=== PATIENT | male | born 1940 | race Caucasian/White ===

== ENCOUNTER 2017-01-25 21:34 | Inpatient (IN) | payer OTHER, BC ==
--- NOTE | 2017-01-25 21:38 | EDPHY ---
H & P HPI/ROS: CHIEF COMPLAINT: Chest pain Limitations: Dementia, patient unable to provide any clinical history HISTORY OF PRESENT ILLNESS: The patient is a 76 y/o male with a history of dementia and CVA arriving via EMS as a cardiac alert, complaining of right-sided substernal chest pressure that developed 20 minutes ago. The chest pain is constant, without associated symptoms. No shortness of breath or dizziness. No prior similar symptoms. No known history of coronary artery disease. No recent cough or URI symptoms. REVIEW OF SYSTEMS: Aside from elements discussed in the HPI, a comprehensive 10-point review of systems was reviewed and is negative. (Connie Kaminski) Past Medical/Surgical History: CVA with right-sided weakness, IVC filter, DVT (Connie Kaminski) Social History: Lives at [facility], , retired (Connie Kaminski) Physical Exam: General Appearance: Alert, pleasant Eyes: Pupils equal and round, no conjunctival pallor ENT, Mouth: Mucous membranes moist Neck: Normal inspection Respiratory: Lungs are clear to auscultation Cardiovascular: Regular rate and rhythm Gastrointestinal: Abdomen is soft and nontender Neurological: A&O, right sided weakness Skin: Warm and dry Extremities: Right lower extremity edema greater than left. Right-sided hemiparesis Psychiatric: Mood and affect normal (Connie Kaminski) Constitutional: Initial Vital Signs Temperature (C) 36.7 C 01/25/17 21:52 Heart Rate 97 01/25/17 21:52 Respiratory Rate 20 01/25/17 21:52 Blood Pressure 104/74 01/25/17 21:52 O2 Sat (%) 96 01/25/17 21:52 O2 Delivery Mode Nasal Cannula O2 (L/minute) 2 Allergies/Adverse Reactions: levofloxacin [From Levaquin] Allergy (Intermediate, Verified 05/30/14 18:02) Rash Penicillins Allergy (Intermediate, Verified 05/30/14 18:02) Rash ciprofloxacin [From Cipro] Allergy (Verified 01/25/17 21:37) Home Medications: Medication Instructions Recorded Dutasteride [Avodart 0.5 MG (RX)] 0.5 mg PO DAILY 10/07/12 Tamsulosin HCl [Flomax 0.4 MG (RX)] 0.4 mg PO DAILY 10/07/12 Ergocalciferol [Vitamin D2 (*)] 50,000 unit PO Q30D 01/25/17 Sulfamethox/Tmp 800/160 mg 1 tab PO BID 01/25/17 [Bactrim Ds] Herbals/Supplements -Info Only 1 ea PO DAILY 01/26/17 Levothyroxine [Synthroid 100 mcg 100 mcg PO DAILY 01/26/17 (*)] Multivitamins [Multivitamin (*)] 1 each PO DAILY 01/26/17 Sennosides/Docusate Sodium 1 each PO DAILY 01/26/17 [Senna-S Tablet] Triamterene/Hydrochlorothiazid 1 each PO DAILY 01/26/17 [Triamterene-Hctz 37.5-25 mg Tb] Warfarin Sodium [Coumadin 5MG (*)] 5 mg PO DAILY16 01/26/17 lamoTRIgine [LamICTAL 100 MG (*)] 200 mg PO BID 01/26/17 Medical Decision Making - Diagnostics Imaging: Discussed imaging studies w/ sharepoint analyst Radiologist, I viewed and interpreted images myself - Diagnostics EKG Interpretation: EKG interpreted by me reveals normal sinus rhythm, rate 99, right bundle branch block ST segment elevation in lead 3, 1 mm (Connie Kaminski) ED Course/Re-evaluation: 12:30 a.m.- The patient was seen by the hospitalist who noticed a rash on his right abdomen which was suspicious for shingles. The right upper quadrant ultrasound was performed which raise concern for cholecystitis given thickened gallbladder wall and gallstones. The cause of the patient's pain is not entirely clear at this point. He will be admitted to a medical-surgical bed because cardiac cause has been ruled out at this time. I have consulted with Dr. GREGORIO Abbott of General surgery and he will see the patient in consultation with the hospitalist who plans to admit the patient. (Catia Cotto) 2139: Cancelled cardiac alert after initial EKG. Does not meet criteria for STEMI. There are no old EKGs for comparison, but I think that the EKG changes are secondary to the right bundle is block. In addition, the patient's chest pain has almost completely resolved. 2199: Reassessed patient, his switchboard operator is now at the bedside. He is now having RUQ tenderness. Has right lower extremity pedal edema that is greater than the left and right-sided hemiparesis. The patient is a very poor historian and keeps changing his answers as to if he is having pain or not. He is also unsure if he is having chest pain or abdominal pain. Plan on RLE US to rule out DVT. 2214: Per radiologist, patient's chest x-ray reveals hypoventilatory chest with streaky right basilar opacities that could be related to atelectasis and/or pneumonia. 2245: Spoke with Dr. Lynn, radiologist, RLE US is negative for DVT. In addition D-dimer is negative and I do not suspect acute pulmonary embolism etiology for the chest pain. 2300: Leukocytosis present, alk-phos elevated. Right upper quadrant ultrasound ordered to rule out cholecystitis. Abdominal exam is benign and nontender at this time. He denies pain. The hospitalist service was consulted for admission, Dr. Yoder accepts admission of this patient. [facility] pending RUQ US. (Connie Kaminski) Differential Diagnosis: Differential diagnosis includes though it is not limited to pneumonia, pneumothorax, pulmonary embolism, aortic dissection, pericarditis, acute coronary syndrome, cholecystitis, peptic ulcer disease. (Connie Kaminski) - Data Points Laboratory Results: Laboratory Results 01/26/17 04:12 01/26/17 04:12 Medications Given: Dutasteride (Avodart) 0.5 mg PO DAILY [facility] Stop: 07/26/17 08:59 Last Admin: 01/28/17 10:35 Dose: 0.5 mg Enoxaparin Sodium (Lovenox) 80 mg SC BID [facility] Stop: 07/27/17 13:29 Last Admin: 01/28/17 16:02 Dose: 80 mg Ertapenem (Invanz) 1 gm IVP DAILY [facility] PRN Reason: Protocol Stop: 02/25/17 21:44 Last Admin: 01/28/17 10:36 Dose: 1 gm Lamotrigine (Lamictal) 200 mg PO BID [facility] Stop: 07/25/17 20:59 Last Admin: 01/28/17 10:34 Dose: 200 mg Levothyroxine Sodium (Synthroid) 100 mcg PO DAILY [facility] Stop: 07/26/17 08:59 Last Admin: 01/28/17 10:35 Dose: 100 mcg Multivitamins (Tab-A-Leif) 1 each PO DAILY [facility] Stop: 07/26/17 08:59 Last Admin: 01/28/17 10:36 Dose: 1 each Senna/Docusate Sodium (Senokot-S) 1 tab PO DAILY [facility] Stop: 07/26/17 08:59 Last Admin: 01/28/17 10:35 Dose: 1 tab Tamsulosin HCl (Flomax) 0.4 mg PO DAILY [facility] Stop: 07/26/17 08:59 Last Admin: 01/28/17 10:34 Dose: 0.4 mg Triamterene/HCTZ (Maxzide-25) 1 each PO DAILY [facility] Stop: 07/26/17 08:59 Last Admin: 01/28/17 10:34 Dose: 1 each Warfarin Sodium (Coumadin) 5 mg PO DAILY16 [facility] Stop: 07/27/17 15:59 Last Admin: 01/28/17 16:02 Dose: 5 mg Discontinued Medications Acyclovir (Zovirax Oral Liquid) 800 mg PO 5XD [facility] Stop: 02/25/17 00:59 Last Admin: 01/28/17 13:46 Dose: Not Given Bupivacaine HCl (Sensorcaine 0.5% Vial) Confirm Administered Dose 30 ml .ROUTE .STK-MED ONE Stop: 01/26/17 16:57 Last Admin: 01/26/17 21:00 Dose: 30 ml Cefazolin Sodium (Ancef) Confirm Administered Dose 1 gm .ROUTE .STK-MED ONE Stop: 01/26/17 18:46 Last Admin: 01/26/17 20:06 Dose: 1 gm Cefazolin Sodium (Ancef) Confirm Administered Dose 1 gm .ROUTE .STK-MED ONE Stop: 01/26/17 18:46 Last Admin: 01/26/17 20:06 Dose: 1 gm Heparin Sodium (Porcine) (Heparin Sodium) Confirm Administered Dose 1,000 unit .ROUTE .STK-MED ONE Stop: 01/26/17 20:18 Last Admin: 01/26/17 20:20 Dose: 1,000 unit Lactated Ringer's (Lr) 1,000 mls @ 75 mls/hr IV CONT [facility] Stop: 01/27/17 14:15 Last Admin: 01/26/17 01:42 Dose: 1,000 mls Phytonadione 10 mg/ Sodium (Chloride) 51 mls @ 102 mls/hr IV ONCE ONE Stop: 01/26/17 08:15 Last Admin: 01/26/17 08:19 Dose: 51 mls Potassium Chloride/Dextrose/Sod Cl (D5w 1/2 Ns W/ 20 Kcl/L) 1,000 mls @ 100 mls /hr IV CONT [facility] Stop: 07/25/17 21:44 Last Admin: 01/28/17 01:02 Dose: 1,000 mls Iopamidol (Isovue-300) Confirm Administered Dose 150 ml .ROUTE .STK-MED ONE Stop: 01/26/17 17:15 Last Admin: 01/26/17 20:48 Dose: Not Given Iopamidol (Isovue-M 200) Confirm Administered Dose 20 ml .ROUTE .STK-MED ONE Stop: 01/26/17 17:16 Last Admin: 01/26/17 20:48 Dose: Not Given Departure - Departure Disposition: [facility] Inpatient Acute Clinical Impression: Cholecystitis Chest pain Qualifiers: Chest pain type: precordial pain Qualified Code(s): R07.2 - Precordial pain Condition: Fair Report Scribed for: Connie Kaminski Report Scribed by: Edwige Rock Date of Report: 01/25/17 Time of Report: 22:18 Physician Review and Approval Statement: 01/25/17 22:19 Portions of this note were transcribed by a certified medical assistant. I personally performed a history, physical exam, medical decision making, and confirmed accuracy of information the transcribed note. (Connie Kaminski)
--- NOTE | 2017-01-25 21:46 | CPEKG ---
Heart Rate: 99 RR Interval: 606 P-R Interval: 188 QRSD Interval: 154 QT Interval: 396 QTC Interval: 509 P Norvell: 46 QRS Norvell: -84 T Wave Norvell: 76 EKG Severity - ABNORMAL ECG - EKG Impression: SINUS RHYTHM EKG Impression: RIGHT BUNDLE BRANCH BLOCK EKG Impression: PROBABLE ANTEROSEPTAL INFARCT, AGE INDETERM Electronically Signed By: Connie Kaminski 25-Jan-2017 23:22:14
[2017-01-25 21:54] LABS: ADD DIFF? YES; ADD MORPH? NO; ADD SCAN? NO; ATYPICAL LYMPHOCYTE FLAG 0 (0-99); FRAGMENT RBC FLAG 0 (0-99); HEMATOCRIT 42.6 % (40.0-51.0); HEMOGLOBIN 14.6 g/dL (13.7-17.5); LEFT SHIFT FLG 90 (0-99); LIPEMIA HEMOLYSIS FLAG 90 (0-99); MEAN CELL HEMOGLOBIN 29.9 pg (27.9-34.1); MEAN CELL HEMOGLOBIN CONCENTR. 34.3 g/dL (32.4-36.7); MEAN CELL VOLUME 87.1 fL (81.5-99.8); MEAN PLATELET VOLUME 8.8 fL (8.7-11.7); PLATELET CLUMPS FLAG 0 (0-99); PLATELET COUNT 323 10^3/uL (150-400); RED BLOOD CELL COUNT 4.89 10^6/uL (4.40-6.38); RED CELL DISTRIBUTION WIDTH 13.1 % (11.5-15.2)
[2017-01-25 22:10] LABS: ANION GAP 14 mEq/L (8-16); CALCIUM 9.4 mg/dL (8.5-10.4); CARBON DIOXIDE 23 mEq/l (22-31); CHLORIDE 96 mEq/L (97-110); CREATININE 1.1 mg/dL (0.7-1.3); GLOMERULAR FILTRATION RATE > 60; GLUCOSE 131 mg/dL (70-100); POTASSIUM 3.7 mEq/L (3.5-5.2); SODIUM 133 mEq/L (134-144)
[2017-01-25 22:22] LABS: TROPONIN I < 0.012 ng/mL (0.000-0.034)
[2017-01-25 22:31] LABS: PLATELET ESTIMATE ADEQUATE (ADEQ)
[2017-01-25 22:34] LABS: POLYCHROMASIA 1+
[2017-01-25 22:35] LABS: ALBUMIN 3.5 g/dL (3.5-5.0); TOTAL PROTEIN 6.5 g/dL (6.3-8.2)
[2017-01-25 22:48] LABS: ALANINE AMINOTRANSFERASE 50 IU/L (21-72); ALKALINE PHOSPHATASE 186 IU/L (38-126); ASPARTATE AMINOTRANSFERASE 41 IU/L (17-59); BILIRUBIN,TOTAL 0.3 mg/dL (0.1-1.4); BILIRUBIN-CONJUGATED 0.3 mg/dL (0.0-0.5)
[2017-01-25] MEDS ORDERED: ACYCLOVIR 400 MG TAB PO ONE (23:57)
[2017-01-26] MEDS ORDERED: ONDANSETRON 4 MG/2 ML VIAL IVP PRN (00:27)
[2017-01-26] MEDS ORDERED: ACETAMINOPHEN 325 MG TAB PO PRN (00:27)
[2017-01-26] MEDS ORDERED: HYDROmorphONE/DILAUDID 1 MG/ML INJ IVP PRN ×2 (00:27→19:23)
--- NOTE | 2017-01-26 00:43 | PDGENHP ---
History and Physical - Chief Complaint Right lower chest/RUQ pain - History of Present Illness Source - patient is able to supplement some of the history but limited with history of aphasia related to CVA and dementia. Patient stepdaughter and friend /sail maker at bedside and supplement history. [place] and communicating via text with daughter. Case discussed with ED provider and EMR reviewed. HPI - Pleasant 76 yo M with pmx significant for CVA right hemiparesis, aphasia, dementia, hx DVT s/p IVC filter on coumadin, BPH, HTN who presents to the ED tonight from [facility] [place] with complaints of Right lower chest/RUQ abdominal pain. Patient reports pain has been on going for almost 1 week. He denies any fevers/chills/nausea/vomiting/diarrhea. Pain is intermittent and cramping. Patient underwent an o/p Xray at his facility that was negative for evidence of pneumonia. Laboratory studies were significant for leukocytosis over the weekend. Patient was started on macrobid for UTI. Patient's stepdaughter reports patient has had mild cough and congestion as reported to her by patient's since yesterday. Patient has also been c/o some itching and pain at similar site of pain but patient reports there is also a deeper pain on going in addition. It was noted on my exam patient appeared to have a rash that was not known. Patient with history of shingles with last exacerbation 2011 also on the right side. patient did receive zostavax, flu and pneumonia presumably per family as he resides in [facility]. History Information - Allergies/Home Medication List Allergies/Adverse Reactions: levofloxacin [From Levaquin] Allergy (Intermediate, Verified 05/30/14 18:02) Rash Penicillins Allergy (Intermediate, Verified 05/30/14 18:02) Rash ciprofloxacin [From Cipro] Allergy (Verified 01/25/17 21:37) Home Medications: Dutasteride [Avodart 0.5 MG (RX)] 0.5 mg PO DAILY 10/07/12 [Last Taken Unknown] LEVOTHYROXINE SODIUM [Levoxyl 137 mcg] 137 mcg PO 10/07/12 [Last Taken Unknown] Tamsulosin HCl [Flomax 0.4 MG (RX)] 0.4 mg PO DAILY8 10/07/12 [Last Taken Unknown] Triamterene/Hydrochlorothiazid [Triamterene-Hctz 37.5-25 mg Cp] 1 each PO [Last Taken Unknown] WARFARIN SODIUM [Coumadin] 10 mg PO 10/07/12 [Last Taken Unknown] lamoTRIgine [LamICTAL ODT] 400 mg PO 10/07/12 [Last Taken Unknown] Bactrim DS 01/25/17 [Last Taken Unknown] Doxycycline Hyclate 01/25/17 [Last Taken Unknown] Vitamin D3 01/25/17 [Last Taken Unknown] I have personally reviewed and updated: family history, medical history, social history, surgical history - Past Medical History Additional medical history: dementia. 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 pt is wheelchair dependent. hypothyroidism. hx DVT on coumadin s/p IVC filter placement. BPH. benign essential HTN - Surgical History Additional surgical history: IVC filter. neurosurgical intervention for AVM. TURP. g tube insertion/removal. - Family History Additional family history: parents . patient child presumed healthy but step-daughter at bedside unsure. - Social History Smoking Status: Former smoker Tobacco Use: Cigarettes, Cigar Alcohol Use: None (previous history of moderate use prior to CVA.) Drug Use: None Additional social history: Patient is . Resides at [facility]. wheelchair dependent. COR - DNR/DNI. TAMICA. Review of Systems Review of Systems: ROS: 10pt was reviewed & negative except for what was stated in HPI & below Constitutional: Reports: no symptoms. Denies: chills, fever, malaise EENMT: Reports: no symptoms. Denies: blurred vision, nose congestion, sore throat Cardiac: Reports: chest pain (pt reports R lower chest/upper abdominal pain), edema (chronic LE edema, slightly increased in last few days. ). Denies: palpitations, syncope Respiratory: Reports: cough (nonproductive x 1 day) Gastrointestinal: Reports: abdominal pain (RUQ x 1 week). Denies: vomitting, black stools, rectal bleeding, constipation, diarrhea, nausea Genitourinary: Reports: hematuria. Denies: discharge, frequency, pain Muscolosketal: Denies: back pain, calf pain, muscle pain Skin: Reports: rash (right lateral/anterior chest, left axilla.) Neurological: Reports: pre-existing deficit (baseline left hemiparesis). Denies : anxiety, depressed, headache, seizure Hematologic/Lymphatic: Reports: blood clots. Denies: anemia Physical Exam Physical Exam: Selected Entries 01/25/17 21:52 Blood Pressure Automatic Method Heart Rate 97 Respiratory 20 Rate O2 Sat (%) 96 Temperature (C) 36.7 C Blood Pressure 104/74 Mean Arterial 84 Pressure (MAP) O2 Delivery Room Air Mode Temperature Oral Source Temp Pulse Resp BP Pulse Ox 36.7 C 97 20 104/74 96 01/25/17 21:52 01/25/17 21:52 01/25/17 21:52 01/25/17 21:52 01/25/17 21:58 Constitutional: no apparent distress, appears nourished, chronically ill appearing, obese, other (RUE contracted in sling. ) Eyes: PERRL (slightly decreased reactivity to light bilaterally but symmetric. ) , anicteric sclera, EOMI, No scleral injection Ears, Nose, Mouth, Throat: moist mucous membranes, No poor dentition Cardiovascular: regular rate and rhythym, no murmur, rub, or gallop, edema (2+ bilateral lower legs/feet. pitting.) Peripheral Pulses: 1+: dorsalis-pedis (R) (limited 2/2 edema), dorsalis-pedis (L ) (limited 2/2 edema) Respiratory: no respiratory distress, no rales or rhonchi, clear to auscultation , reduced air movement (bibasilar. no crackles) Gastrointestinal: normoactive bowel sounds, no palpable masses, tenderness ( RUQ. neg Bear's sign), other (obese abdomen. soft. ), No ascites, No bear's sign, No guarding, No distension Genitourinary: no bladder tenderness, No pineda in urethra Skin: warm, normal color, no fluctuance, rash (right latera/anterior chest thoracic distribution happens to be below patient right arm sling, but not present previously per family/sail maker. left axilla. ), No pressure ulcer Musculoskeletal: generalized weakness, other (right hemiparesis. strength on left generally weak. patient requires assistance with movement/sitting up. ) Neurologic: AAOx3, sensation intact bilaterally, other (right hemiparesis. cranial nerves grossly intact. ), No weakness, No numbness, No facial droop Psychiatric: not anxious, not encephalopathic, other (aphasia. dementia.), No anxious, No depressed Lab Data & Imaging Review 01/25/17 21:30 01/25/17 21:30 WBC 14.20 10^3/uL (3.80-9.50) H 01/25/17 21:30 RBC 4.89 10^6/uL (4.40-6.38) 01/25/17 21:30 Hgb 14.6 g/dL (13.7-17.5) 01/25/17 21:30 Hct 42.6 % (40.0-51.0) 01/25/17 21:30 MCV 87.1 fL (81.5-99.8) 01/25/17 21:30 MCH 29.9 pg (27.9-34.1) 01/25/17 21:30 MCHC 34.3 g/dL (32.4-36.7) 01/25/17 21:30 RDW 13.1 % (11.5-15.2) 01/25/17 21:30 Plt Count 323 10^3/uL (150-400) 01/25/17 21:30 MPV 8.8 fL (8.7-11.7) 01/25/17 21:30 Neut % (Auto) Not Reported 01/25/17 21:30 Lymph % (Auto) Not Reported 01/25/17 21:30 Roseau % (Auto) Not Reported 01/25/17 21:30 Eos % (Auto) Not Reported 01/25/17 21:30 Baso % (Auto) Not Reported 01/25/17 21:30 Nucleat RBC Rel Count 0.0 % (0.0-0.2) 01/25/17 21:30 Absolute Neuts (auto) Not Reported 01/25/17 21:30 Absolute Lymphs (auto) Not Reported 01/25/17 21:30 Absolute Monos (auto) Not Reported 01/25/17 21:30 Absolute Eos (auto) Not Reported 01/25/17 21:30 Absolute Basos (auto) Not Reported 01/25/17 21:30 Absolute Nucleated RBC 0.00 10^3/uL (0-0.01) 01/25/17 21:30 Immature Gran % Not Reported 01/25/17 21:30 Seg Neutrophils % 69 % 01/25/17 21:30 Band Neutrophils % 1 % 01/25/17 21:30 Lymphocytes % 11 % 01/25/17 21:30 Monocytes % 11 % 01/25/17 21:30 Eosinophils % 1 % 01/25/17 21:30 Metamyelocytes % 2 % 01/25/17 21:30 Myelocytes % 5 % 01/25/17 21:30 Immature Gran # Not Reported 01/25/17 21:30 Absolute Seg Neuts 9.80 10^/uL (1.70-6.50) H 01/25/17 21:30 Absolute Band Neuts 0.14 10^3/uL (0.00-0.70) 01/25/17 21:30 Absolute Lymphocytes 1.56 10^3/uL (1.00-3.00) 01/25/17 21:30 Absolute Monocytes 1.56 10^3/uL (0.30-0.80) H 01/25/17 21:30 Absolute Eosinophils 0.14 10^3/uL (0.03-0.40) 01/25/17 21:30 Absolute Metamyelocyte 0.28 10^3/mL (0.00-0.00) H 01/25/17 21:30 Absolute Myelocytes 0.71 10^3/mL (0.00-0.00) H 01/25/17 21:30 Platelet Estimate ADEQUATE (ADEQ) 01/25/17 21:30 Polychromasia 1+ H 01/25/17 21:30 D-Dimer 0.48 ug/mLFEU (0.00-0.50) 01/25/17 21:30 Sodium 133 mEq/L (134-144) L 01/25/17 21:30 Potassium 3.7 mEq/L (3.5-5.2) 01/25/17 21:30 Chloride 96 mEq/L (97-110) L 01/25/17 21:30 Carbon Dioxide 23 mEq/l (22-31) 01/25/17 21:30 Anion Gap 14 mEq/L (8-16) 01/25/17 21:30 BUN 15 mg/dL (7-23) 01/25/17 21:30 Creatinine 1.1 mg/dL (0.7-1.3) 01/25/17 21:30 Estimated GFR > 60 01/25/17 21:30 Glucose 131 mg/dL (70-100) H 01/25/17 21:30 Calcium 9.4 mg/dL (8.5-10.4) 01/25/17 21:30 Total Bilirubin 0.3 mg/dL (0.1-1.4) 01/25/17 21:30 Conjugated Bilirubin 0.3 mg/dL (0.0-0.5) 01/25/17 21:30 Unconjugated Bilirubin 0.0 mg/dL (0.0-1.1) 01/25/17 21:30 AST 41 IU/L (17-59) 01/25/17 21:30 ALT 50 IU/L (21-72) 01/25/17 21:30 Alkaline Phosphatase 186 IU/L (38-126) H 01/25/17 21:30 Troponin I < 0.012 ng/mL (0.000-0.034) 01/25/17 21:30 NT-Pro-B Natriuret Pep 103 pg/mL (0-125) 01/25/17 21:30 Total Protein 6.5 g/dL (6.3-8.2) 01/25/17 21:30 Albumin 3.5 g/dL (3.5-5.0) 01/25/17 21:30 Lipase 126 IU/L (23-300) 01/25/17 21:30 Imaging Review: Limited Right Upper Quadrant Ultrasound History: RUQ Pain, possible Cholelithiasis. Comparison: None available. Findings: The study is severely limited by body habitus. The liver is incompletely visualized, with no gross hepatic mass. There is no appreciable intrahepatic biliary dilatation. The common bile duct is not definitely visualized, with an equivocal duct measuring 4 mm. The gallbladder wall is mildly thickened, with multiple stones in the gallbladder. The right kidney is suboptimally visualized, measuring approximately 10.8 cm without crow hydronephrosis. Impression: Severely limited study as above, with cholelithiasis and gallbladder wall thickening suspicious for cholecystitis Findings discussed with Catia Cotto 01/26/2017 at 0:04. Portable Chest at 2200 hours History: Chest Pain. Comparison: None available. Findings: Lung volumes are markedly low with streaky right basilar consolidation. There is no pneumothorax or visible pleural effusion. Granulomas are noted. Heart size is within normal limits for technique. Degenerative change is present in the right glenohumeral joint. Impression: Hypoventilatory chest with streaky right basilar opacities that could be related to atelectasis and/or pneumonia. Right Lower Extremity Ultrasound and Venous Duplex Doppler Study History: Swelling. Comparison: None available. Technique: High frequency transducer was used for imaging and Doppler study of the veins of the lower extremity. Pulsed Doppler and color Doppler were utilized, along with various maneuvers to assess flow in the veins. Findings: The deep veins of the lower extremity are normally compressible between the groin and the upper calf and have normal Doppler waveforms within them. No venous thrombosis is identified. Edema is noted. Impression: No evidence of deep vein thrombosis. Findings discussed with BRAD FARLEY 01/25/2017 at 22:43. Visualized and Interpreted Chest x-ray results: Yes Chest X-Ray results: other (poor inspiration/atelectasis right lower lung field. lower suspicion for pneumonia at this time with c/o RUQ abodminal pain and abnl US.) EKG Interpretation: Positive for: normal sinsus rhythm, right bundle branch block EKG additional interpertation: NSR RBBB 90s. Assessment & Plan Assessment: #RUQ abdominal pain - Patient with complaint of sx ongoing x 1 week. alk phos slightly elevated no other lft elevations. patient was seen in ED prior to US results which did return concerning for cholecystitis. Surgery consulted from ED will await their recommendations. Patient will be made npo. It was noted also patient with evidence of shingles below right arm which is in a sling. family/sail maker noted patient without previous issues of rash in this area but last had episode of shingles similarly on right side approx 2011. There was concern for chest pain and patient initially a cardiac alert as RBBB changes noted by EMS. this was since discontinued. patient points to RUQ rather than chest. trop neg. RBBB on ekg but no comparison ekgs available. ddimer neg. without hypoxia or tachypnea and has IVC filter in place also on coumadin. awaiting add on PT/INR. #shingles right lower chest, rash also noted left axilla - patient will be started on acyclovir. no vesicles appreciated. leukocytosis - possibly 2/2 iliana vs. shingles vs atelectasis noted on cxr vs less likely pneumonia. await surgery recommendations and consideration for abx, continue acyclovir. incentive spirometry as tolerated. patient undergoing antibiotic tx for possible UTI 2/2 dx of hematuria on nitrofurantoin. will repeat UA at this time. Patient reported to be on antibiotics for last several days but no accompanying med rec from [facility] arrived with patient. #hyponatremia - likely related to hypovolemia. IVF supplementation while npo. #hypochloridemia - in setting of above. #hyperglycemia - nonfasting lab. repeat bmp in AM. #LE edema - chronic slightly increased from baseline per family. #hx DVT s/p IVC filter on coumadin tx - check pt/inr. RLE US neg for DVT. #hx CVA with L hemiparesis - supportive care. patient wheelchair bound at baseline. #dementia - supportive care. #hypothyroidism - continue l-thyroxine when diet advanced. #benign essential HTN - BPs acceptable at this time. #BPH - resume avodart when diet advanced. #hematuria - repeat UA. patient denies any sx. antibiotics started empirically per step-daughter. hold at this time. FEN - LR NS. NPO pending surgery evaluation. PPX - right venous duplex neg for DVT. SCDs if tolerated. otherwise s/p IVC filter and on coumadin. COR - DNR/DNI per step/daughter communicating with patient who is en route [place] hospital from airport. Dispo - Admit to observation on med/surge at this time pending surgery recommendations.
[2017-01-26] MEDS ORDERED: LR 1,000 ML IV SCH (01:00)
[2017-01-26 01:08] LABS: INR 2.54 (0.83-1.16); PROTIME(PATIENT) 27.3 SEC (12.0-15.0)
[2017-01-26 01:09] LABS: APTT 39.8 SEC (23.0-38.0)
[2017-01-26] MEDS: ACYCLOVIR 200 MG/5 ML 60 ML BTL PO SCH ×6 (01:58→22:37)
[2017-01-26 04:51] LABS: ADD DIFF? YES; ADD MORPH? NO; ATYPICAL LYMPHOCYTE FLAG 10 (0-99); FRAGMENT RBC FLAG 0 (0-99); HEMATOCRIT 38.1 % (40.0-51.0); HEMOGLOBIN 13.1 g/dL (13.7-17.5); LIPEMIA HEMOLYSIS FLAG 90 (0-99); MEAN CELL HEMOGLOBIN 29.9 pg (27.9-34.1); MEAN CELL HEMOGLOBIN CONCENTR. 34.4 g/dL (32.4-36.7); MEAN PLATELET VOLUME 8.5 fL (8.7-11.7); PLATELET CLUMPS FLAG 0 (0-99); PLATELET COUNT 309 10^3/uL (150-400); RED BLOOD CELL COUNT 4.38 10^6/uL (4.40-6.38); RED CELL DISTRIBUTION WIDTH 13.1 % (11.5-15.2)
[2017-01-26 04:55] LABS: ADD SCAN? NO; LEFT SHIFT FLG 110 (0-99)
[2017-01-26 04:58] LABS: COLOR YELLOW; LEUKOCYTE ESTERASE,URINE NEGATIVE (NEGATIVE); NITRITE,URINE NEGATIVE (NEGATIVE)
[2017-01-26 05:08] LABS: ALANINE AMINOTRANSFERASE 46 IU/L (21-72); ALBUMIN 2.5 g/dL (3.5-5.0); ALKALINE PHOSPHATASE 141 IU/L (38-126); ANION GAP 12 mEq/L (8-16); ASPARTATE AMINOTRANSFERASE 25 IU/L (17-59); BILIRUBIN,TOTAL 0.1 mg/dL (0.1-1.4); CALCIUM 8.6 mg/dL (8.5-10.4); CARBON DIOXIDE 23 mEq/l (22-31); CHLORIDE 100 mEq/L (97-110); GLOMERULAR FILTRATION RATE > 60; GLUCOSE 89 mg/dL (70-100); POTASSIUM 4.1 mEq/L (3.5-5.2); SODIUM 135 mEq/L (134-144); TOTAL PROTEIN 4.7 g/dL (6.3-8.2)
[2017-01-26 05:20] LABS: PLATELET ESTIMATE ADEQUATE (ADEQ); POLYCHROMASIA 1+
--- NOTE | 2017-01-26 05:44 | SOAPPROG ---
[facility] Progress Note Assessment/Plan: Assessment: 76 MALE WITH RUQ PAIN AND US SUSPICIOUS FOR CHOLECYSTITIS LFTS OK Plan:WILL SEE THIS AM/ LIKELY NEEDS LAP IVETTE 01/26/17 05:43 Objective: Vital Signs Temp Pulse Resp BP Pulse Ox 36.6 C 81 20 103/64 95 01/26/17 04:00 01/26/17 04:00 01/26/17 04:00 01/26/17 04:00 01/26/17 04:00 Laboratory Results 01/26/17 04:12 01/26/17 04:12 01/24/17 01/25/17 01/26/17 05:59 05:59 05:59 Intake Total 0 Output Total 500 Balance -500 PT 27.3 SEC (12.0-15.0) H 01/25/17 21:30 INR 2.54 (0.83-1.16) H 01/25/17 21:30 ICD10 Worksheet Patient Problems: Problems Problem Status Onset Chest pain Acute
[2017-01-26 06:25] LABS: APTT 42.3 SEC (23.0-38.0); INR 2.81 (0.83-1.16); PROTIME(PATIENT) 29.5 SEC (12.0-15.0)
[2017-01-26] MEDS ORDERED: PHYTONADIONE 10 MG in NS 50 ML IV ONE (07:46)
--- NOTE | 2017-01-26 10:31 | HOSPPROG ---
Hospitalist Progress Note Assessment/Plan: 76 yo M w h/o remote R MCA CVA nad VTE admitted w abd pain,m cholecystitis cholecystitis: surgery today start ertapenem pcn allergy noted coagulopathy: FFP and vit K ? zoster: this rash may well be skin irritation from where his L hand rests but [employer] zoster- treat for now if zoster, will declare itself next 24 hours ? pneumonia: cxr interp by me- likely splinting from RUQ process proph: resume anticoag post op dispo: inpt Subjective: case d/w dr esquivel. ruq tenderness Objective: Vital Signs Temp Pulse Resp BP Pulse Ox 36.7 C 74 16 111/57 L 93 01/26/17 08:00 01/26/17 08:00 01/26/17 08:00 01/26/17 08:00 01/26/17 08:00 Laboratory Results 01/26/17 04:12 01/26/17 04:12 01/25/17 01/26/17 01/27/17 05:59 05:59 05:59 Intake Total 0 Output Total 500 Balance -500 PT 29.5 SEC (12.0-15.0) H 01/26/17 05:01 INR 2.81 (0.83-1.16) H 01/26/17 05:01 - Physical Exam Constitutional: no apparent distress, appears nourished Eyes: PERRL, anicteric sclera Ears, Nose, Mouth, Throat: moist mucous membranes, hearing normal Cardiovascular: regular rate and rhythym, no murmur, rub, or gallop, No tachycardia Respiratory: no respiratory distress, no rales or rhonchi Gastrointestinal: normoactive bowel sounds, claudio's sign, No guarding, No rebound Genitourinary: no bladder fullness, No pineda in urethra Skin: warm, other (erythematous macular rash under L breast) Musculoskeletal: full muscle strength, no muscle tenderness Neurologic: AAOx3, other (aphasic w l SIDED WEAKNESS) Psychiatric: interacting appropriately Lymph, Heme, Immunologic: no cervical LAD ICD10 Worksheet Patient Problems: Problems Problem Status Onset Chest pain Acute
--- NOTE | 2017-01-26 16:16 | ASMTCASEMG ---
Living Arrangements What is your living Answers: Alone arrangement? Who do you live with? Type Of Residence What kind of residence do Answers: Assisted Living you live in? Type of Residence Facility Name Notes: [facility] Discharge Plan Comments Coordination Status Comments Notes: Pt is a 76 y/o man admitted for chest pain, shingles and cholecystitis likely. Pt will most likely have surgical intervention today w/ Dr. Abbott. Therapies have been ordered. Needs are TBD at this time. CM to follow. Plan: TBD Date Signed: 01/26/2017 04:15 PM Electronically Signed By:SHREE Gomez
[2017-01-26] MEDS ORDERED: BUPIVACAINE 0.5% 30 ML SDV ONE (16:56)
[2017-01-26] MEDS ORDERED: IOPAMIDOL (ISOVUE-300) 150 ML BTL ONE (17:14)
[2017-01-26] MEDS ORDERED: IOPAMIDOL (ISOVUE-M 200) 20 ML VIAL ONE (17:15)
--- NOTE | 2017-01-26 17:30 | PDANEPAE ---
ANE History of Present Illness 76 year old male w/ complex PMHx presents for lap iliana. 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 Patient admitted with suspected shingles, patient is on both contact and droplet precaution (N95 mask to be worn ). Long discussion with patient's (POA) at bedside. states patient listed as DNR/DNI, but not what she intended. No terminal operations manager heroic measures or shelter life supportive measures, but intubation for surgery, chest compressions or even defibrillation is acceptable to treat immediate problems. ANE Past Medical History - Cardiovascular History Hx Hypertension: Yes Hx Arrhythmias: No Hx Chest Pain: No Hx Coronary Artery / Peripheral Vascular Disease: No Hx CHF / Valvular Disease: No Hx Palpitations: No - Pulmonary History Hx COPD: No Hx Asthma/Reactive Airway Disease: No Hx Recent Upper Respiratory Infection: No Hx Oxygen in Use at Home: No Hx Sleep Apnea: No Sleep Apnea Screening Result - Last Documented: Negative - Endocrine History Hx Diabetes: No Hypothyroid: Yes Hyperthyroid: No Obesity: no - Neurological & Psychiatric Hx Hx Neurological and Psychiatric Disorders: Yes Neurological / Psychiatric History Comment: CVA in 2004 - Cancer History Hx Cancer: No - GI History Gastrointestinal History Comment: History of PEG. ANE Review of Systems Review of systems is: negative Review of Systems: - Exercise capacity Exercise capacity: <4 METS ANE Patient History - Allergies Allergies/Adverse Reactions: levofloxacin [From Levaquin] Allergy (Intermediate, Verified 05/30/14 18:02) Rash Penicillins Allergy (Intermediate, Verified 05/30/14 18:02) Rash ciprofloxacin [From Cipro] Allergy (Verified 01/25/17 21:37) - Home Medications Home medications: home medication list seen and reviewed Home Medications: Dutasteride [Avodart 0.5 MG (RX)] 0.5 mg PO DAILY 10/07/12 [Last Taken 01/25/17] Tamsulosin HCl [Flomax 0.4 MG (RX)] 0.4 mg PO DAILY 10/07/12 [Last Taken ] Ergocalciferol [Vitamin D2 (*)] 50,000 unit PO Q30D 01/25/17 [Last Taken ] Sulfamethox/Tmp 800/160 mg [Bactrim Ds] 1 tab PO BID 01/25/17 [Last Taken 21:00] Herbals/Supplements -Info Only 1 ea PO DAILY 01/26/17 [Last Taken Unknown] Levothyroxine [Synthroid 100 mcg (*)] 100 mcg PO DAILY 01/26/17 [Last Taken ] Multivitamins [Multivitamin (*)] 1 each PO DAILY 01/26/17 [Last Taken 01/25/17] Sennosides/Docusate Sodium [Senna-S Tablet] 1 each PO DAILY 01/26/17 [Last Taken 01/25/17] Triamterene/Hydrochlorothiazid [Triamterene-Hctz 37.5-25 mg Tb] 1 each PO DAILY 01/26/17 [Last Taken 01/25/17] Warfarin Sodium [Coumadin 5MG (*)] 5 mg PO DAILY16 01/26/17 [Last Taken 01/25/17 ] lamoTRIgine [LamICTAL 100 MG (*)] 200 mg PO BID 01/26/17 [Last Taken 01/25/17 21 :00] - NPO status NPO Status: no food or drink >8 hours NPO Since - Liquids (Date): 01/25/17 NPO Since - Liquids (Time): 23:55 NPO Since - Solids (Date): 01/25/17 NPO Since - Solids (Time): 23:55 - Anes Hx Anes Hx: no prior problems - Smoking Hx Smoking Status: Former smoker - Alcohol Use Alcohol Use: None (previous history of moderate use prior to CVA.) - Family Anes Hx Family Anes Hx: neg - N/A ANE Labs/Vital Signs - Labs Result Diagrams: 01/26/17 04:12 01/26/17 04:12 - Vital Signs Vital Signs: reviewed preoperatively; see RN documention for details Blood Pressure: 119/69 Heart Rate: 71 Respiratory Rate: 18 O2 Sat (%): 96 Height: 177.8 cm Weight: 80 kg ANE Physical Exam - Airway Neck exam: FROM Mallampati Score: Class 2 Mouth exam: normal dental/mouth exam - Pulmonary Pulmonary: no respiratory distress - Cardiovascular Cardiovascular: regular rate and rhythym - ASA Status ASA Status: III ANE Anesthesia Plan Anesthesia Plan: general endotracheal anesthesia Total IV Anesthesia: No
[2017-01-26 17:53] LABS: INR 1.51 (0.83-1.16); PROTIME(PATIENT) 18.4 SEC (12.0-15.0)
[2017-01-26] MEDS ORDERED: PROPOFOL 200 MG/20 ML VIAL ONE (17:56)
[2017-01-26] MEDS ORDERED: fentaNYL 100 MCG/2 ML INJ ONE ×2 (17:56→20:48)
[2017-01-26] MEDS ORDERED: ceFAZolin 1 GM VIAL ONE ×2 (18:45)
[2017-01-26] MEDS ORDERED: ONDANSETRON 4 MG/2 ML VIAL ONE (18:45)
[2017-01-26] MEDS ORDERED: SUGAMMADEX SODIUM 200 MG/2 ML VIAL IVP ONE (18:45)
[2017-01-26] MEDS ORDERED: DEXAMETHASONE 4 MG/ML VIAL ONE (18:46)
--- NOTE | 2017-01-26 18:48 | PDMN ---
Medical Necessity Medical necessity: change to IP; los>2mn for cholecystitis, coagulopathy, and ? zoster; requires lap iliana, IV abx, FFP and vit K, monitor rash; hx R MCA CVA and VTE; per order and progress note 01/26/17
[2017-01-26] MEDS ORDERED: NALOXONE HCL 0.4 MG/ML INJ IVP PRN (19:23)
[2017-01-26] MEDS ORDERED: LR 500 ML IV PRN (19:23)
[2017-01-26] MEDS ORDERED: fentaNYL 100 MCG/2 ML INJ IVP PRN (19:23)
[2017-01-26] MEDS ORDERED: HEPARIN 1000 UNIT/1 ML MDV ONE (20:17)
--- NOTE | 2017-01-26 21:29 | POSTANESTH ---
Post Anesthetic Evaluation Cardiovascular Status: Normal, Stable, Similar to Pre-Op Cond Respiratory Status: Normal, Stable, Similar to Pre-op Cond. Level of Consciousness/Mental Status: Can Participate in Eval, Mildly Sleepy, Arousable Pain Control: Adequate, Prn Tx Ordered Nausea/Vomiting Control: Adequate, Prn Tx Ordered Complications Possibly Related to Anesthesia: None Noted
--- NOTE | 2017-01-26 21:30 | POSTOPPROG ---
Post Op Note Date of Operation: 01/26/17 Surgeon: Jeff Abbott Rand Cementer: LAURA Anesthesiologist: JAIME Anesthesia: GET(General Endotracheal) Pre-op Diagnosis: ACUTE CHOLECYSTITIS Post-op Diagnosis: SEVERE SUBACUTE CHOLECYSTITIS Indication: PAIN Procedure: LAP IVETTE Findings: SEVERE THICKENED SUBACUTE CHOLECYSTITIS, LARGE STONES Inf/Abcess present in the surg proc area at time of surgery?: Yes Depth: Organ Space EBL: 100-500 Complications: 0 Drains: Esdras Mary Specimen(s): GALLBLADDER
[2017-01-26] MEDS ORDERED: OXYCODONE/APAP 5/325 TAB PO PRN (21:36)
[2017-01-26] MEDS: lamoTRIgine 100 MG TAB PO SCH (22:36)
[2017-01-26] MEDS: ERTAPENEM 1 GM VIAL IVP SCH (23:22)
[2017-01-27 05:16] LABS: ADD DIFF? YES; ADD MORPH? NO; ADD SCAN? NO; ATYPICAL LYMPHOCYTE FLAG 0 (0-99); FRAGMENT RBC FLAG 0 (0-99); HEMATOCRIT 36.8 % (40.0-51.0); HEMOGLOBIN 12.4 g/dL (13.7-17.5); LEFT SHIFT FLG 20 (0-99); LIPEMIA HEMOLYSIS FLAG 80 (0-99); MEAN CELL HEMOGLOBIN 30.2 pg (27.9-34.1); MEAN CELL HEMOGLOBIN CONCENTR. 33.7 g/dL (32.4-36.7); MEAN CELL VOLUME 89.5 fL (81.5-99.8); MEAN PLATELET VOLUME 8.6 fL (8.7-11.7); PLATELET CLUMPS FLAG 0 (0-99); PLATELET COUNT 308 10^3/uL (150-400); RED BLOOD CELL COUNT 4.11 10^6/uL (4.40-6.38); RED CELL DISTRIBUTION WIDTH 13.2 % (11.5-15.2)
[2017-01-27 05:30] LABS: INR 1.4 (0.83-1.16); PROTIME(PATIENT) 17.3 SEC (12.0-15.0)
[2017-01-27] MEDS: ACYCLOVIR 200 MG/5 ML 60 ML BTL PO SCH ×5 (06:14→23:04)
[2017-01-27 06:15] LABS: ALANINE AMINOTRANSFERASE 62 IU/L (21-72); ALBUMIN 2.8 g/dL (3.5-5.0); ALKALINE PHOSPHATASE 133 IU/L (38-126); AMYLASE 38 IU/L (30-110); ANION GAP 10 mEq/L (8-16); ASPARTATE AMINOTRANSFERASE 72 IU/L (17-59); BILIRUBIN,TOTAL 0.7 mg/dL (0.1-1.4); BILIRUBIN-CONJUGATED 0.4 mg/dL (0.0-0.5); BILIRUBIN-UNCONJUGATED 0.3 mg/dL (0.0-1.1); CALCIUM 8.5 mg/dL (8.5-10.4); CARBON DIOXIDE 27 mEq/l (22-31); CHLORIDE 101 mEq/L (97-110); CREATININE 0.9 mg/dL (0.7-1.3); GLOMERULAR FILTRATION RATE > 60; GLUCOSE 104 mg/dL (70-100); POTASSIUM 4.9 mEq/L (3.5-5.2); SODIUM 138 mEq/L (134-144); TOTAL PROTEIN 5.6 g/dL (6.3-8.2)
[2017-01-27 06:30] LABS: PLATELET ESTIMATE ADEQUATE (ADEQ)
[2017-01-27] MEDS ORDERED: HYDROmorphone HCL/NS/PF 0.4 MG/2 ML SYR IVP PRN (08:30)
[2017-01-27] MEDS ORDERED: Herbals/Supplements -Info Only PO SCH (09:00)
[2017-01-27] MEDS: ERTAPENEM 1 GM VIAL IVP SCH (09:52)
[2017-01-27] MEDS: DUTASTERIDE 0.5 MG CAP PO SCH (09:53)
[2017-01-27] MEDS: MULTIVITAMINS 1 EACH TAB PO SCH (09:53)
[2017-01-27] MEDS: lamoTRIgine 100 MG TAB PO SCH ×2 (09:53→22:50)
[2017-01-27] MEDS: SENNOSIDES/DOCUSATE SODIUM TAB PO SCH (09:53)
[2017-01-27] MEDS: TAMSULOSIN HCL 0.4 MG CAP PO SCH (09:53)
[2017-01-27] MEDS: TRIAMTERENE/HCTZ 37.5/25 1 EACH TAB PO SCH (09:53)
[2017-01-27] MEDS: LEVOTHYROXINE 100 MCG TAB PO SCH (09:54)
--- NOTE | 2017-01-27 10:56 | SOAPPROG ---
SOAP Progress Note Assessment/Plan: Assessment/Plan: 76 Y M hx CVA c R hemiplegia, dementia, possible shingles, and s/p challenging lap iliana for necrotic hydrops gallbladder and large stones. POD #1. Advance diet. Continue ARNOLD drain and IV abx. S: no complaints. says "it's all done!" denies pain. says he is eating fine, but still c NPO order. O: alert no scleral icterus no wob arnold drain serosanguinous, nonbilious abd soft wound well dressed, min shadowing 01/27/17 10:54 Objective: Vital Signs Temp Pulse Resp BP Pulse Ox 37.2 C 94 18 112/61 92 01/27/17 08:00 01/27/17 08:00 01/27/17 08:00 01/27/17 09:53 01/27/17 08:00 Laboratory Results 01/27/17 04:24 01/27/17 04:24 01/26/17 01/27/17 01/28/17 05:59 05:59 05:59 Output Total 395 Balance -395 PT 17.3 SEC (12.0-15.0) H 01/27/17 04:24 INR 1.40 (0.83-1.16) H 01/27/17 04:24 ICD10 Worksheet Patient Problems: Problems Problem Status Onset Chest pain Acute
[2017-01-27] MEDS: D5W 1/2 NS W/ 20 KCl/L 1,000 ML IV SCH (12:14)
--- NOTE | 2017-01-27 14:03 | HOSPPROG ---
Hospitalist Progress Note Assessment/Plan: 76 yo M w h/o remote R MCA CVA and VTE admitted w abd pain and cholecystitis # Acute cholecystitis- US abd (reviewed) GB thickening concerning for cholecystis s/p cholecystomy yesterday - described as cemented into the abdomen by Dr. Abbott - continue ertapenem # suspected acute zoster- this rash may well be skin irritation from where his L hand rests but [employer]PER[employer] zoster- treat for now -continue empiric treatment - cont isolation # Leukocytosis - 2/2 cholecystitis - cont to follow on IV abx - monitor blood cultures # Community acquired pneumonia- CXR (personally reviewed and interpreted) RLL infiltrate vs atelectasis oxygen saturations 93% on 5L - continue current antibiotics - encourage IS for likely splinting with surgery # h/o DVT s/p filter on anticoagulation - anticoagulation reversed for surgery # h/o CVA - cont BP meds and supportive care # proph- resume anticoagulation when cleared by # dispo: inpt I have discussed the case with Dr. Abbott - patient gallbladder was very difficult to dissect - monitor closely on IV antibiotics Subjective: denies SOB Objective: Vital Signs Temp Pulse Resp BP Pulse Ox 36.8 C 92 14 98/58 L 93 01/27/17 11:45 01/27/17 11:45 01/27/17 11:45 01/27/17 11:45 01/27/17 11:45 Laboratory Results 01/27/17 04:24 01/27/17 04:24 01/26/17 01/27/17 01/28/17 05:59 05:59 05:59 Output Total 395 Balance -395 PT 17.3 SEC (12.0-15.0) H 01/27/17 04:24 INR 1.40 (0.83-1.16) H 01/27/17 04:24 - Physical Exam Constitutional: chronically ill appearing Eyes: anicteric sclera Ears, Nose, Mouth, Throat: moist mucous membranes Cardiovascular: regular rate and rhythym Respiratory: no respiratory distress Gastrointestinal: normoactive bowel sounds, other (abdominal incisions healing well - dressings c/d/i) Genitourinary: no bladder fullness Skin: warm Musculoskeletal: No asymmetric calves Neurologic: No AAOx3 Psychiatric: No interacting appropriately Lymph, Heme, Immunologic: no cervical LAD ICD10 Worksheet Patient Problems: Problems Problem Status Onset Chest pain Acute
--- NOTE | 2017-01-27 19:57 | GOP ---
[f rep st] OPERATIVE REPORT DATE OF OPERATION: 01/26/2017 SURGEON: Jeff Abbott MD PREOPERATIVE DIAGNOSIS: Acute cholecystitis. POSTOPERATIVE DIAGNOSIS: Severe subacute cholecystitis and cholelithiasis. PROCEDURE PERFORMED: Laparoscopic cholecystectomy FINDINGS: Patient was found to have a severely thickened subacute cholecystitis with very large stones and small ducts. DESCRIPTION OF PROCEDURE: Patient taken to the operating room where he received satisfactory general endotracheal anesthesia by Dr. Elam. He was placed in supine position, prepped and draped in the usual sterile fashion. A periumbilical incision was made. A Veress needle inserted. Pneumoperitoneum was established. Trocar was introduced. Laparoscope introduced. Good visualization was obtained. Three other trocars were placed in the upper abdomen under direct vision. Gallbladder was completely obscured by adherent omentum, and the gallbladder itself was markedly inflamed and thickened. The omentum was taken down off the gallbladder with electrocautery and with the Harmonic Scalpel until the entire gallbladder could be exposed. The cystic triangle was carefully dissected free. There was a marked amount of inflammation in the area. The end of the gallbladder was determined. The cystic duct and cystic arteries were carefully dissected free and exposed. A clear view was obtained. Common duct was identified in its location. Gallbladder was dissected free from the bed in the hepatic fossa from the fundus down. Hemostasis was obtained with electrocautery and the Harmonic scalpel. As the gallbladder was dissected down in a retrograde fashion, the final connections to the liver were divided with the Harmonic scalpel. It became clear that the structures isolated were the correct structures. The cystic artery was multi hemoclipped and divided. The cystic duct was involved in a large amount of inflammatory change around the area, and that was then divided with the Endo-CATALINA stapler, the gallbladder. Gallbladder and any free stones were placed in the specimen bag and extracted through the upper midline port site. The wound was then copiously irrigated. Hemostasis was assured. After adequate debridement and hemostasis, a 15 round silicone YUSEF drain was brought in through one of the trocar sites, secured to the skin with a 3-0 nylon suture , and placed in Morison pouch. The gallbladder fossa was coated with some Melchor powder. Hemostasis was clearly obtained. Trocars removed under direct vision. Trocar sites were closed with 0 Vicryl for the fascia, 4-0 Monocryl subcuticular stitch for the skin. All layers were infiltrated with Marcaine. Blood loss for the procedure was approximately 200 cc. No complications. He was taken to the recovery room in good condition. All wounds were infiltrated with Marcaine. /[id number]/MODL MTDD
[2017-01-28] MEDS: D5W 1/2 NS W/ 20 KCl/L 1,000 ML IV SCH (01:02)
[2017-01-28 05:05] LABS: INR 1.28 (0.83-1.16); PROTIME(PATIENT) 16.2 SEC (12.0-15.0)
[2017-01-28 05:06] LABS: HEMATOCRIT 35.1 % (40.0-51.0); HEMOGLOBIN 11.4 g/dL (13.7-17.5); MEAN CELL HEMOGLOBIN 29.4 pg (27.9-34.1); MEAN CELL HEMOGLOBIN CONCENTR. 32.5 g/dL (32.4-36.7); MEAN CELL VOLUME 90.5 fL (81.5-99.8); RED BLOOD CELL COUNT 3.88 10^6/uL (4.40-6.38); RED CELL DISTRIBUTION WIDTH 13.2 % (11.5-15.2)
[2017-01-28 05:26] LABS: ANION GAP 10 mEq/L (8-16); CALCIUM 8.7 mg/dL (8.5-10.4); CARBON DIOXIDE 26 mEq/l (22-31); CHLORIDE 102 mEq/L (97-110); CREATININE 0.9 mg/dL (0.7-1.3); GLOMERULAR FILTRATION RATE > 60; GLUCOSE 101 mg/dL (70-100); POTASSIUM 4.5 mEq/L (3.5-5.2); SODIUM 138 mEq/L (134-144)
[2017-01-28] MEDS: ACYCLOVIR 200 MG/5 ML 60 ML BTL PO SCH ×2 (06:15→13:46)
--- NOTE | 2017-01-28 10:23 | ASMTCMCOM ---
CM Note CM Note Notes: CM spoke w/ on the phone regarding dispo planning. OT is recommending SNF. PT is recommending that pt returns to [place] assisted living facility. Pts would like referrals made to SNF. She has chosen referrals made to [facility], [facility], [facility] and [facility]. Referrals made to facilities. CM to follow. Plan: SNF Date Signed: 01/28/2017 10:23 AM Electronically Signed By:SHREE Gomez
[2017-01-28] MEDS: lamoTRIgine 100 MG TAB PO SCH ×2 (10:34→20:50)
[2017-01-28] MEDS: TAMSULOSIN HCL 0.4 MG CAP PO SCH (10:34)
[2017-01-28] MEDS: TRIAMTERENE/HCTZ 37.5/25 1 EACH TAB PO SCH (10:34)
[2017-01-28] MEDS: LEVOTHYROXINE 100 MCG TAB PO SCH (10:35)
[2017-01-28] MEDS: DUTASTERIDE 0.5 MG CAP PO SCH (10:35)
[2017-01-28] MEDS: SENNOSIDES/DOCUSATE SODIUM TAB PO SCH (10:35)
[2017-01-28] MEDS: ERTAPENEM 1 GM VIAL IVP SCH (10:36)
[2017-01-28] MEDS: MULTIVITAMINS 1 EACH TAB PO SCH (10:36)
--- NOTE | 2017-01-28 12:41 | SOAPPROG ---
SOAP Progress Note Assessment/Plan: Assessment/Plan: 76 Y M hx CVA c R hemiplegia, dementia, possible shingles, and s/p challenging lap iliana for necrotic hydrops gallbladder and large stones. POD #2. Advance diet. Continue IV abx while in hospital. May need PO abx on d/c depending on when this occurs. Ok to d/c ARNOLD drain before discharge if remains nonbilious. S: wants to walk around. O: alert no scleral icterus no wob arnold drain serosanguinous, nonbilious abd soft wounds clean with amparo 01/28/17 12:38 Objective: Vital Signs Temp Pulse Resp BP Pulse Ox 36.9 C 86 20 118/71 96 01/28/17 12:00 01/28/17 12:00 01/28/17 12:00 01/28/17 12:00 01/28/17 12:00 Laboratory Results 01/28/17 04:15 01/28/17 04:15 01/27/17 01/28/17 01/29/17 05:59 05:59 05:59 Intake Total 1940 Output Total 395 900 Balance -395 1040 PT 16.2 SEC (12.0-15.0) H 01/28/17 04:15 INR 1.28 (0.83-1.16) H 01/28/17 04:15 ICD10 Worksheet Patient Problems: Problems Problem Status Onset Chest pain Acute
--- NOTE | 2017-01-28 15:47 | HOSPPROG ---
Hospitalist Progress Note Assessment/Plan: 76 yo M w h/o remote R MCA CVA and VTE admitted w abd pain and cholecystitis # Acute cholecystitis- US abd (reviewed) GB thickening concerning for cholecystis s/p cholecystomy yesterday - described as cemented into the abdomen by Dr. Abbott - continue ertapenem day 05/16 # suspected acute zoster- this rash has not developed into vesicles - more c/w dermatitis -dc acyclovir and isolation - wound care to eval as dependant/pressure area fro contracted right arm # Leukocytosis - 2/2 cholecystitis - 18-> 10 this am -cont to follow on IV abx # Community acquired pneumonia- CXR (personally reviewed and interpreted) RLL infiltrate vs atelectasis oxygen saturations 96% on 3L - continue current antibiotics - porr respiratory effort - encourage improved pulmonary mechanics # h/o DVT s/p filter on anticoagulation which was reversed for OR - restart lovenox and coumadin today # h/o CVA - cont BP meds and supportive care # proph- resume anticoagulation when cleared by # dispo: inpt I have discussed the case with surgery - patient will likely be ready for dc in 48 hours Subjective: not hungry Objective: Vital Signs Temp Pulse Resp BP Pulse Ox 36.9 C 86 20 118/71 96 01/28/17 12:00 01/28/17 12:00 01/28/17 12:00 01/28/17 12:00 01/28/17 12:00 Laboratory Results 01/28/17 04:15 01/28/17 04:15 01/27/17 01/28/17 01/29/17 05:59 05:59 05:59 Intake Total 1940 Output Total 395 900 Balance -395 1040 PT 16.2 SEC (12.0-15.0) H 01/28/17 04:15 INR 1.28 (0.83-1.16) H 01/28/17 04:15 - Physical Exam Constitutional: chronically ill appearing Eyes: anicteric sclera Ears, Nose, Mouth, Throat: moist mucous membranes Cardiovascular: regular rate and rhythym Respiratory: no respiratory distress, reduced air movement Gastrointestinal: normoactive bowel sounds, tenderness, No guarding, No rebound Genitourinary: no bladder fullness Skin: warm Musculoskeletal: No asymmetric calves Neurologic: No AAOx3 Psychiatric: agitated Lymph, Heme, Immunologic: no cervical LAD ICD10 Worksheet Patient Problems: Problems Problem Status Onset Chest pain Acute
[2017-01-28] MEDS: WARFARIN SODIUM 5 MG TAB PO SCH (16:02)
[2017-01-28] MEDS: ENOXAPARIN 80 MG/0.8 ML SYR SC SCH ×3 (16:02→20:53)
[2017-01-29 05:01] LABS: HEMATOCRIT 33.9 % (40.0-51.0); HEMOGLOBIN 11.3 g/dL (13.7-17.5); MEAN CELL HEMOGLOBIN 29.9 pg (27.9-34.1); MEAN CELL HEMOGLOBIN CONCENTR. 33.3 g/dL (32.4-36.7); MEAN CELL VOLUME 89.7 fL (81.5-99.8); RED BLOOD CELL COUNT 3.78 10^6/uL (4.40-6.38); RED CELL DISTRIBUTION WIDTH 13.3 % (11.5-15.2)
[2017-01-29 05:08] LABS: INR 1.23 (0.83-1.16); PROTIME(PATIENT) 15.7 SEC (12.0-15.0)
[2017-01-29 05:19] LABS: ANION GAP 9 mEq/L (8-16); CALCIUM 8.8 mg/dL (8.5-10.4); CARBON DIOXIDE 26 mEq/l (22-31); CHLORIDE 100 mEq/L (97-110); CREATININE 0.9 mg/dL (0.7-1.3); GLOMERULAR FILTRATION RATE > 60; GLUCOSE 87 mg/dL (70-100); POTASSIUM 4.4 mEq/L (3.5-5.2); SODIUM 135 mEq/L (134-144)
[2017-01-29 09:15] LABS: ALANINE AMINOTRANSFERASE 43 IU/L (21-72); ALBUMIN 2.5 g/dL (3.5-5.0); ALKALINE PHOSPHATASE 113 IU/L (38-126); AMYLASE 39 IU/L (30-110); ASPARTATE AMINOTRANSFERASE 28 IU/L (17-59); BILIRUBIN,TOTAL 0.5 mg/dL (0.1-1.4); BILIRUBIN-CONJUGATED 0.4 mg/dL (0.0-0.5); BILIRUBIN-UNCONJUGATED 0.1 mg/dL (0.0-1.1); TOTAL PROTEIN 4.9 g/dL (6.3-8.2)
[2017-01-29] MEDS: LEVOTHYROXINE 100 MCG TAB PO SCH (09:16)
[2017-01-29] MEDS: ENOXAPARIN 80 MG/0.8 ML SYR SC SCH (09:17)
[2017-01-29] MEDS: ERTAPENEM 1 GM VIAL IVP SCH (09:17)
[2017-01-29] MEDS: DUTASTERIDE 0.5 MG CAP PO SCH (09:35)
[2017-01-29] MEDS: SENNOSIDES/DOCUSATE SODIUM TAB PO SCH ×2 (09:36→11:36)
[2017-01-29] MEDS: lamoTRIgine 100 MG TAB PO SCH (09:36)
[2017-01-29] MEDS: TRIAMTERENE/HCTZ 37.5/25 1 EACH TAB PO SCH (09:37)
[2017-01-29] MEDS: TAMSULOSIN HCL 0.4 MG CAP PO SCH (09:37)
[2017-01-29] MEDS: MULTIVITAMINS 1 EACH TAB PO SCH (09:37)
[2017-01-29] MEDS ORDERED: BISACODYL 10 MG SUPP PR PRN (10:33)
[2017-01-29] MEDS ORDERED: POLYETHYLENE GLYCOL 3350 17 GM PKT PO PRN (10:33)
[2017-01-29] MEDS ORDERED: MAGNESIUM HYDROXIDE 30 ML UDCUP PO PRN (10:33)
--- NOTE | 2017-01-29 10:49 | SOAPPROG ---
[facility] Progress Note Assessment/Plan: Assessment: 76-year-old male status post cholecystectomy, current multiple medical problems Patient reports pain is improved, no complaints Physical exam Non jaundiced Slightly confused but follows motor commands Chest CTA bilaterally Abdomen soft nontender Plan: Slowly improving from a surgical perspective If IV access continues to be difficult okay to switch patient to oral antibiotics such as Augmentin Patient seen examined by Dr. Abbott 01/29/17 10:48 Objective: Vital Signs Temp Pulse Resp BP Pulse Ox 37.0 C 86 18 127/74 H 96 01/29/17 08:00 01/29/17 08:00 01/29/17 08:00 01/29/17 08:00 01/29/17 08:00 Laboratory Results 01/29/17 04:17 01/29/17 04:17 01/28/17 01/29/17 01/30/17 05:59 05:59 05:59 Intake Total 1940 1350 Output Total 900 975 30 Balance 1040 375 -30 PT 15.7 SEC (12.0-15.0) H 01/29/17 04:17 INR 1.23 (0.83-1.16) H 01/29/17 04:17 ICD10 Worksheet Patient Problems: Problems Problem Status Onset Chest pain Acute Cholecystitis Acute
--- NOTE | 2017-01-29 14:34 | ASMTCMCOM ---
CM Note CM Note Notes: Received vm from pt's , she chose . CM spoke w/Felix at , can take pt tomorrow. Also discussed with transportation to snf, CM will arrange transport with [facility] or [facility], notified it would be about $50-$60, ok with cost. Date Signed: 01/29/2017 02:34 PM Electronically Signed By:Hodan Garcia RN
--- NOTE | 2017-01-29 15:08 | HOSPPROG ---
Hospitalist Progress Note Assessment/Plan: 76 yo M w h/o remote R MCA CVA and VTE admitted w abd pain and cholecystitis # Acute cholecystitis- US abd (reviewed) GB thickening concerning for cholecystis s/p cholecystomy yesterday - described as cemented into the abdomen by Dr. Abbott - continue ertapenem day 06/15 - will transition to PO augmentin at dc # Leukocytosis - 2/2 cholecystitis - 18-> 10 -cont to follow on IV abx # Community acquired pneumonia- CXR (personally reviewed and interpreted) RLL infiltrate vs atelectasis oxygen saturations 97% on 2L - continue current antibiotics - continue to wean O2 # h/o DVT s/p filter on anticoagulation which was reversed for OR- INR 1.23 - restart lovenox and - continue coumadin # h/o CVA - cont BP meds and supportive care # suspected acute zoster- this rash has not developed into vesicles - more c/w dermatitis -dc acyclovir and isolation - wound care to eval as dependant/pressure area fro contracted right arm # proph- resume anticoagulation when cleared by # dispo: inpt I have discussed the case with CM - anticipate dc tomorrow Subjective: poor appetite Objective: Vital Signs Temp Pulse Resp BP Pulse Ox 36.6 C 76 18 122/69 H 97 01/29/17 11:51 01/29/17 11:51 01/29/17 11:51 01/29/17 11:51 01/29/17 11:51 Laboratory Results 01/29/17 04:17 01/29/17 04:17 01/28/17 01/29/17 01/30/17 05:59 05:59 05:59 Intake Total 1940 1350 450 Output Total 900 975 460 Balance 1040 375 -10 PT 15.7 SEC (12.0-15.0) H 01/29/17 04:17 INR 1.23 (0.83-1.16) H 01/29/17 04:17 - Physical Exam Constitutional: chronically ill appearing Eyes: anicteric sclera Ears, Nose, Mouth, Throat: moist mucous membranes Cardiovascular: regular rate and rhythym Respiratory: no respiratory distress, reduced air movement Gastrointestinal: normoactive bowel sounds, No tenderness Genitourinary: no bladder fullness Skin: warm Musculoskeletal: No asymmetric calves Neurologic: No AAOx3 Psychiatric: agitated Lymph, Heme, Immunologic: no cervical LAD ICD10 Worksheet Patient Problems: Problems Problem Status Onset Chest pain Acute Cholecystitis Acute
[2017-01-29] MEDS: WARFARIN SODIUM 5 MG TAB PO SCH (16:22)
[2017-01-29] MEDS ORDERED: LORazepam 2 MG/ML INJ ONE (19:05)
[2017-01-29] MEDS ORDERED: LORazepam 2 MG/ML INJ IVP ONE (19:15)
[2017-01-30] MEDS: ENOXAPARIN 80 MG/0.8 ML SYR SC SCH ×2 (04:58→10:43)
[2017-01-30] MEDS: lamoTRIgine 100 MG TAB PO SCH ×2 (04:59→10:31)
[2017-01-30] MEDS: SENNOSIDES/DOCUSATE SODIUM TAB PO SCH ×2 (04:59→10:34)
[2017-01-30 05:06] LABS: INR 1.22 (0.83-1.16); PROTIME(PATIENT) 15.6 SEC (12.0-15.0)
[2017-01-30] MEDS: DUTASTERIDE 0.5 MG CAP PO SCH (10:33)
[2017-01-30] MEDS: TRIAMTERENE/HCTZ 37.5/25 1 EACH TAB PO SCH (10:33)
[2017-01-30] MEDS: MULTIVITAMINS 1 EACH TAB PO SCH (10:34)
[2017-01-30] MEDS: LEVOTHYROXINE 100 MCG TAB PO SCH (10:34)
[2017-01-30] MEDS: TAMSULOSIN HCL 0.4 MG CAP PO SCH (10:34)
[2017-01-30] MEDS: ERTAPENEM 1 GM VIAL IVP SCH (10:36)
[2017-01-30 11:19] VITALS: BP 102/72; PULSE 84; RESP 16; TEMP 97.3; O2SAT 96
--- NOTE | 2017-01-30 12:11 | PDIAF ---
- Diagnosis Diagnosis: cholecystitis Code Status: Full Code - Medication Management Discharge Medications: Medications to Continue on Transfer Dutasteride [Avodart 0.5 MG (*)] 0.5 mg PO DAILY 10/07/12 [Last Taken 01/25/17] Tamsulosin HCl [Flomax 0.4 MG (*)] 0.4 mg PO DAILY 10/07/12 [Last Taken 01/25/17 ] Ergocalciferol [Vitamin D2 (*)] 50,000 unit PO Q30D 01/25/17 [Last Taken ] Herbals/Supplements -Info Only 1 ea PO DAILY 01/26/17 [Last Taken Unknown] Levothyroxine [Synthroid 100 mcg (*)] 100 mcg PO DAILY 01/26/17 [Last Taken ] Multivitamins [Multivitamin (*)] 1 each PO DAILY 01/26/17 [Last Taken 01/25/17] Sennosides/Docusate Sodium [Senna-S Tablet] 1 each PO DAILY 01/26/17 [Last Taken 01/25/17] Triamterene/Hydrochlorothiazid [Triamterene-Hctz 37.5-25 mg Tb] 1 each PO DAILY 01/26/17 [Last Taken 01/25/17] Warfarin Sodium [Coumadin 5MG (*)] 5 mg PO DAILY16 01/26/17 [Last Taken 01/25/17 ] lamoTRIgine [LamICTAL 100 MG (*)] 200 mg PO BID 01/26/17 [Last Taken 01/25/17 21 :00] Acetaminophen [Tylenol 325mg (*)] 650 mg PO Q4HRS PRN tab 01/30/17 [Last Taken Unknown] Cefpodoxime Proxetil 300 mg PO BID #8 tablet 01/30/17 [Last Taken Unknown] Enoxaparin [Lovenox 80 MG (*)] 80 mg SC BID syr 01/30/17 [Last Taken Unknown] Metronidazole 500 mg PO Q8HRS #12 tablet 01/30/17 [Last Taken Unknown] Polyethylene Glycol 3350 [Miralax 17 gm (*)] 17 gm PO DAILY PRN pkt 01/30/17 [ Last Taken Unknown] oxyCODONE/APAP 5/325 [Percocet 5/325 (*)] 1 - 2 tab PO Q4 PRN tab 01/30/17 [ Last Taken Unknown] Discharge Medications: Refer to the Discharge Home Medication list for PRN reason. - Orders Services needed: Registered Nurse, Physical Therapy, Occupational Therapy, Speech Language Pathologist Isolation Type: None Diet Recommendation: cardiac -low fat low salt Diet Texture: Regular Texture Diet, Thin Liquids, Meds Whole w/Liquids, Meds Whole in Puree - Labs/Radiology PT/INR Date: 02/02/17 (daily for INR monitoring) - Follow Up Care Current Providers and Referrals: Jeff Abbott MD [Medical Doctor] - Patient,NotPresent [Unknown] - As per Instructions
--- NOTE | 2017-01-30 15:01 | ASDISCHSUM ---
Discharge Information Plan Status:SNF Medically Cleared to Leave: Discharge Date:01/30/2017 02:25 PM CM D/C Disposition:Senior Living Facility ADT D/C Disposition:Senior Living Facility Projected Discharge Date:01/30/2017 02:00 PM Transportation at D/C:Wheelchair Van Discharge Delay Reason: Follow-Up Date:01/30/2017 02:00 PM Discharge Slot: Final Diagnosis: Placement Information Referral Type:*Residential/SNF Referral ID:[id number] Provider Name:[facility] Address 1:[address] Address 2: City:[place] Selection Factors: State:[place] Patient Contact Information Contact Name:SHIKHAYOSSIMIKE Relationship: Address:[address] City:[place] Alternate Phone: State/Zip Code:[place] [address] Email: Financial Information Financial Class: Primary Plan Desc:MEDICARE INPATIENT Primary Plan Number:[id number] Secondary Plan Desc: OUT OF STATE [facility] Secondary Plan Number:[id number] Assessment Information [facility] Initial CM Assessment Living Arrangements What is your living Answers: Alone arrangement? Who do you live with? Type Of Residence What kind of residence do Answers: Assisted Living you live in? Type of Residence Facility Name Notes: [facility] Discharge Plan Comments Coordination Status Comments Notes: Pt is a 76 y/o man admitted for chest pain, shingles and cholecystitis likely. Pt will most likely have surgical intervention today w/ Dr. Abbott. Therapies have been ordered. Needs are TBD at this time. CM to follow. Plan: TBD Date Signed: 01/26/2017 04:15 PM Electronically Signed By:SHREE Gomez [facility] CM Progress Note CM Note CM Note Notes: CM spoke w/ on the phone regarding dispo planning. OT is recommending SNF. PT is recommending that pt returns to [facility] assisted living facility. Pts would like referrals made to SNF. She has chosen referrals made to [facility], [facility], [facility] and [facility]. Referrals made to facilities. CM to follow. Plan: SNF Date Signed: 01/28/2017 10:23 AM Electronically Signed By:SHREE Gomez [facility] Progress Note CM Note CM Note Notes: Received vm from pt's , she chose . CM spoke w/Felix at , can take pt tomorrow. Also discussed with transportation to snf, CM will arrange transport with [facility] or [place], notified it would be about $50-$60, ok with cost. Date Signed: 01/29/2017 02:34 PM Electronically Signed By:Hodan Garcia RN Case Management Discharge Plan Note Case Management Discharge Discharge Order Complete? Answers: Yes Patient to Obtain Answers: Independently Medications Transportation Arranged Answers: Other Notes: [facility] Transport will Pick (Date 01/30/2017 02:00 PM & Time) Faxed Final Orders Answers: Yes Family Notified Answers: Yes Discharge Comments Notes: D/w , final orders faxed. Felix at notified, RN to call report. Intervention Information Intervention Type:*FOSS-Signed Date of Service:01/26/2017 10:57 AM Patient Type:Observation Staff Member:Dorothy Bernard Hours: Discipline: Severity: Comment:
--- NOTE | 2017-01-30 17:46 | GDS ---
[f rep st] DISCHARGE SUMMARY DISCHARGE DIAGNOSES: Include: 1. Cholecystitis, acute, status post cholecystectomy. 2. Presumed community-acquired pneumonia. 3. History of deep venous thrombosis, on chronic anticoagulation. 4. History of cerebrovascular accident with residual neurologic deficits. HISTORY OF PRESENT ILLNESS: A 76-year-old male with a history of a remote right MCA stroke, who pres ents with complaints of abdominal pain. For details of the patient's initial presentation, please see the History and Physical dated 01/26/2017. CONSULTATIVE SERVICES: General Surgery. PROCEDURES: On 01/27/2017, the patient underwent laparoscopic cholecystectomy. HOSPITAL COURSE BY ISSUE: 1. Acute cholecystitis. The patient presented with abdominal discomfort. Clinical presentation was c onsistent with cholecystitis. The patient was taken to the operating room for cholecystectomy. Per re port of Dr. Abbott, the surgeon, gallbladder was quite ill-appearing intra-abdominally. The patient wa s maintained on IV antibiotics during his hospital stay and transitioned to oral antibiotics to compl ete a 10-day course with metronidazole and cefpodoxime. No cultures were obtained intraoperatively to guide antibiotics. He will remain on broad-spectrum to complete the 10-day course. 2. History of DVT, on long-term anticoagulation. Patient had his blood thinners reversed for operati ve cholecystectomy with FFP and vitamin K. Postoperatively, when stable, he was re-initiated on Loven ox and warfarin therapy. The patient's INR on the day of disposition remains 1.2. Suspect the remnant affects of vitamin K are the cause. Patient is being discharged with Lovenox bridge and continued wa rfarin therapy with daily INR monitoring until therapeutic. 3. History of CVA. The patient's neurologic deficits remained significant, and patient received vincent y PT, OT, and nursing support. He is being discharged back to [facility] facility for ongoing ca re. FOLLOWUP APPOINTMENTS: Include with Dr. Abbott post disposition for postsurgical followup. He is to h ave his sutures removed 10-14 days postoperatively by the [facility] facility. PENDING STUDIES: At the time of this dictation, are none. TIME SEEN: I spent greater than 30 minutes in the planning and coordination of this discharge. /[id number]/MODL
[2017-02-23] MEDS ORDERED: ERGOCALCIFEROL 50,000 I.UNIT CAP PO SCH (09:00)
== END 2017-01-30 14:25 | DRG 417 ==
LOC: EDUNIT# → INTOOBSV 01-26 00:24 → F3E 01-26 01:13 → OBSVTOIN 01-26 18:25
PROVIDERS: ADMIT Family Medicine; ATTEND Family Medicine
PROC: 0FT44ZZ Resection of Gallbladder, Percutaneous Endoscopic Approach (ICD-10-PCS; principal; 2017-01-26 14:30)
DX: K80.12 Calculus of gallbladder with acute and chronic cholecystitis without obstruction (principal); J18.9 Pneumonia, unspecified organism; B02.9 Zoster without complications; D72.829 Elevated white blood cell count, unspecified; I69.920 Aphasia following unspecified cerebrovascular disease; I69.959 Hemiplegia and hemiparesis following unspecified cerebrovascular disease affecting unspecified side; F03.90 Unspecified dementia, unspecified severity, without behavioral disturbance, psychotic disturbance, mood disturbance, and anxiety; N39.0 Urinary tract infection, site not specified; E03.9 Hypothyroidism, unspecified; E87.1 Hypo-osmolality and hyponatremia; I10 Essential (primary) hypertension; Z79.01 Long term (current) use of anticoagulants; Z87.891 Personal history of nicotine dependence; Z99.3 Dependence on wheelchair; Z86.718 Personal history of other venous thrombosis and embolism
CPT/HCPCS: 92507-GN; 92526-GN; 92610-GN; 97163-GP; 97167-GO; 97530-GO; 97530-GP; 97535-GO; G8978-GP-CM; G8979-GP-CK; G8987-GO-CM; G8988-GO-CL; G8996-GN-CJ; G8997-GN-CI; J0690; J1100; J1335; J1650; J2060; J2405; J2704; J3010; J3430; P9016; P9017; Q9966; Q9967

== ENCOUNTER → 2017-07-22 | Outpatient (CLI) | payer OTHER, BC ==
[~2017-07-22] MED LIST: IOPAMIDOL (ISOVUE-300) 100 ML BTL ONE; IOPAMIDOL (ISOVUE-300) 150 ML BTL ONE
== END ==
LOC: FIMAGING 09:32
PROVIDERS: ATTEND Specialist
DX: N28.89 Other specified disorders of kidney and ureter (principal); N40.1 Benign prostatic hyperplasia with lower urinary tract symptoms; J84.10 Pulmonary fibrosis, unspecified; I70.0 Atherosclerosis of aorta; J98.11 Atelectasis; Z90.49 Acquired absence of other specified parts of digestive tract; Z98.890 Other specified postprocedural states
CPT/HCPCS: 74178; Q9967; 82565-PO

== ENCOUNTER 2017-11-07 17:44 | Inpatient (IN) | payer OTHER, BC ==
--- NOTE | 2017-11-07 17:58 | EDPHY ---
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 Only complaint is of a cough according to residential staff. No vomiting or diarrhea. No pain. Also history of frequent urine infections according to residential staff. Patient's answers "no" to every question answered. Was admitted 1 year ago for abdominal pain and had cholecystitis and is now status post cholecystectomy. Severity: Moderate Modifying factors: None REVIEW OF SYSTEMS: Unable to obtain secondary to condition EXAM: GENERAL: Leaning over in bed, contractures on right side HEAD: Atraumatic, normocephalic. EYES: Pupils equal round and reactive to light, extraocular movements intact, sclera anicteric, conjunctiva are normal. ENT: TMs normal, nares patent, oropharynx clear without exudates. Moist mucous membranes. NECK: Normal range of motion, supple without lymphadenopathy or JVD. LUNGS: Breath sounds clear to auscultation bilaterally and equal. No wheezes rales or rhonchi. HEART: Regular rate and rhythm without murmurs, rubs or gallops. ABDOMEN: Soft, nontender, normoactive bowel sounds. No guarding, no rebound. No masses appreciated. BACK: No CVA tenderness, no spinal tenderness, step-offs or deformities EXTREMITIES: Normal range of motion, no pitting or edema. No clubbing or cyanosis. NEUROLOGICAL: Contractures to right arm and leg Cranial nerves II through XII grossly intact. Does not ambulate, only answers no to most questions.. 5/5 strength left arm and leg, normal sensation, PSYCH: Unable to assess SKIN: Warm, dry, normal turgor, no visible rashes or lesions. Source: Patient Exam Limitations: No limitations - Medical/Surgical History Hx Asthma: No Hx Chronic Respiratory Disease: No Hx Diabetes: No Hx Cardiac Disease: Yes Hx Renal Disease: No Hx Cirrhosis: No Hx Alcoholism: No Hx HIV/AIDS: No Hx Splenectomy or Spleen Trauma: No Other PMH: cva/hematuria/turp/focal motor seizures/acute renal failure/DVT with IVC filter, dementia, chronic UTI, AFib osteoprosis, - Family History Significant Family History: No pertinent family hx - Social History Smoking Status: Former smoker Alcohol Use: Sober Constitutional: Initial Vital Signs Temperature (C) 38.4 C H 11/07/17 17:59 Heart Rate 95 11/07/17 17:59 Respiratory Rate 16 11/07/17 17:59 Blood Pressure 135/84 H 18 17:59 O2 Sat (%) 88 L 11/07/17 17:59 O2 Delivery Mode Nasal Cannula O2 (L/minute) 2 Allergies/Adverse Reactions: Penicillins Allergy (Intermediate, Verified 05/30/14 18:02) Rash levofloxacin Allergy (Unknown, Unverified 03/27/17 13:49) Rash Home Medications: Medication Instructions Recorded Dutasteride [Avodart 0.5 MG (*)] 0.5 mg PO DAILY 10/07/12 Tamsulosin HCl [Flomax 0.4 MG (*)] 0.4 mg PO DAILY 10/07/12 Ergocalciferol [Vitamin D2 (*)] 50,000 unit PO Q30D 01/25/17 Herbals/Supplements -Info Only 1 ea PO DAILY 01/26/17 Levothyroxine [Synthroid 100 mcg 100 mcg PO DAILY 01/26/17 (*)] Multivitamins [Multivitamin (*)] 1 each PO DAILY 01/26/17 Sennosides/Docusate Sodium 1 each PO BID 01/26/17 [Senna-S Tablet] Triamterene/Hydrochlorothiazid 1 each PO DAILY 01/26/17 [Triamterene-Hctz 37.5-25 mg Tb] lamoTRIgine [LamICTAL 100 MG (*)] 200 mg PO BID 01/26/17 Polyethylene Glycol 3350 [Miralax 17 gm PO DAILY PRN pkt 01/30/17 17 gm (*)] Nystatin [Nystop] 1 dyana TP DAILY PRN 11/08/17 Warfarin Sodium [Coumadin 7.5MG 7.5 mg PO SUMOTUTHFRSA@11/08/17 (*)] Warfarin Sodium [Coumadin] 10 mg PO WE@16 11/08/17 guaiFENesin/DEXTROMETHORPHAN 10 ml PO Q4 PRN 11/08/17 [Robitussin Dm Oral Liquid (*)] Medical Decision Making - Diagnostics Imaging: Discussed imaging studies w/ will call clerk Radiologist ED Course/Re-evaluation: 8:30 p.m. I spoke with the patient's over the phone who states that about 3 weeks ago he was found to have Pseudomonas in his urine. There are unsure whether this was a normal floor or infection but Dr. Camara told them if he develops a fever to consider that does an infection. He is allergic to penicillins and cephalosporins. His states that he got a rash once several years ago when they were mixed together in a cocktail of antibiotics. She does think that he has had ciprofloxacin before without problem. I will consult ID. Urinalysis is pending. There was significant delay in obtaining urine sample. 8:50 p.m. I discussed the case with Pranav Camara who recommends cefepime. He is familiar with her and is seen in the clinic. I also spoke with Dr. Kolb who will admit to the medical service. Dr. Camara will consult tomorrow. He is septic but not severe sepsis. Differential Diagnosis: Partial list of the Differential diagnosis considered include but were not limited to; electrolyte abnormality, fever, sepsis, severe sepsis, urinary tract infection, pneumonia and although unlikely based on the history and physical exam, I also considered a seizure, acute coronary disease, CVA, bronchitis. Critical Care Time: Critical care time spent by me, Dr. Theodore exclusive with this patient was 35 minutes, exclusive of the PA time exclusive of procedures. The organ system that was at risk was cardiovascular and I gave diagnostics, consultation and admission to prevent worsening of the patient's condition - Data Points Laboratory Results: Laboratory Results 11/07/17 17:52 11/07/17 17:52 Microbiology Results: MICROBIOLOGY 11/07/17 18:18 Blood Blood Culture - Preliminary Gram Positive Cocci Clusters 11/07/17 18:18 Blood Blood Panel (PCR) - Final Staph Coagulase Negative Medications Given: Dutasteride (Avodart) 0.5 mg PO DAILY [facility] Stop: 05/07/18 12:59 Last Admin: 11/08/17 14:06 Dose: 0.5 mg Cefepime HCl 1 gm/ Sodium (Chloride) 50 mls @ 100 mls/hr IV Q12HRS [facility] PRN Reason: Protocol Stop: 12/08/17 20:59 Last Admin: 11/08/17 22:13 Dose: 50 mls Lamotrigine (Lamictal) 200 mg PO BID [facility] Stop: 05/07/18 08:59 Last Admin: 11/08/17 22:12 Dose: 200 mg Levothyroxine Sodium (Synthroid) 100 mcg PO DAILY [facility] Stop: 05/07/18 08:59 Last Admin: 11/08/17 09:30 Dose: 100 mcg Senna/Docusate Sodium (Senokot-S) 1 tab PO BID [facility] Stop: 05/07/18 20:59 Last Admin: 11/08/17 22:12 Dose: 1 tab Tamsulosin HCl (Flomax) 0.4 mg PO DAILY [facility] Stop: 05/07/18 08:59 Last Admin: 11/08/17 09:30 Dose: 0.4 mg Discontinued Medications Acetaminophen (Tylenol) 1,000 mg PO EDNOW ONE Stop: 11/07/17 21:00 Last Admin: 11/07/17 21:07 Dose: 1,000 mg Cefepime HCl 1 gm/ Sodium (Chloride) 50 mls @ 100 mls/hr IV EDNOW ONE PRN Reason: Protocol Stop: 11/07/17 21:26 Last Admin: 11/07/17 21:27 Dose: 50 mls Cefepime HCl 2 gm/ Sodium (Chloride) 100 mls @ 200 mls/hr IV Q12HRS [facility] PRN Reason: Protocol Stop: 12/08/17 08:59 Last Admin: 11/08/17 09:26 Dose: 100 mls Sodium Chloride (Ns) 1,000 mls @ 75 mls/hr IV CONT [facility] Stop: 11/08/17 09:59 Last Admin: 11/07/17 23:28 Dose: 1,000 mls Departure - Departure Disposition: [facility] Acute Clinical Impression: Hyponatremia Fever Qualifiers: Fever type: unspecified Qualified Code(s): R50.9 - Fever, unspecified Urinary tract infection Qualifiers: Urinary tract infection type: acute cystitis Hematuria presence: without hematuria Qualified Code(s): N30.00 - Acute cystitis without hematuria Sepsis Qualifiers: Sepsis type: sepsis due to unspecified organism Qualified Code(s): A41.9 - Sepsis, unspecified organism Condition: Fair
[2017-11-07 18:26] LABS: PLATELET COUNT 217 10^3/uL (150-400)
[2017-11-07 18:35] LABS: INR 3.68 (0.83-1.16)
[2017-11-07 18:42] LABS: PROTIME(PATIENT) 36.2 SEC (12.0-15.0)
[2017-11-07] MEDS ORDERED: CEFEPIME HCL 1 GM in NS 50 ML IV ONE (20:57)
[2017-11-07] MEDS ORDERED: ONDANSETRON DISINTEGRATING 4 MG TAB PO PRN (20:58)
[2017-11-07] MEDS ORDERED: ACETAMINOPHEN 325 MG TAB PO PRN (20:58)
[2017-11-07] MEDS ORDERED: ONDANSETRON 4 MG/2 ML VIAL IVP PRN (20:58)
[2017-11-07] MEDS ORDERED: ACETAMINOPHEN 500 MG TAB PO ONE (20:59)
--- NOTE | 2017-11-07 21:38 | PDGENHP ---
History and Physical - Chief Complaint Fever - History of Present Illness Mr. Jeff Barnard is a 77 yo M with a PMHx of CVA with residual R sided contractures and aphasia, dementia, previous DVT on Coumadin who presents to [facility] for evaluation of fever. History obtained mostly from chart review and discussion with ED physician due to patient's medical condition. Per report, patient had fever of 38.4 at halfway. His only complaint according to nursing staff was cough. When asked patient does report recent pain with urination. Otherwise, he answers no to questions. History Information - Allergies/Home Medication List Allergies/Adverse Reactions: Penicillins Allergy (Intermediate, Verified 05/30/14 18:02) Rash ciprofloxacin Allergy (Unknown, Unverified 03/27/17 13:49) levofloxacin Allergy (Unknown, Unverified 03/27/17 13:49) Rash Home Medications: Dutasteride [Avodart 0.5 MG (*)] 0.5 mg PO DAILY 10/07/12 [Last Taken 01/25/17] Tamsulosin HCl [Flomax 0.4 MG (*)] 0.4 mg PO DAILY 10/07/12 [Last Taken 01/25/17 ] Ergocalciferol [Vitamin D2 (*)] 50,000 unit PO Q30D 01/25/17 [Last Taken ] Herbals/Supplements -Info Only 1 ea PO DAILY 01/26/17 [Last Taken Unknown] Levothyroxine [Synthroid 100 mcg (*)] 100 mcg PO DAILY 01/26/17 [Last Taken ] Multivitamins [Multivitamin (*)] 1 each PO DAILY 01/26/17 [Last Taken 01/25/17] Sennosides/Docusate Sodium [Senna-S Tablet] 1 each PO DAILY 01/26/17 [Last Taken 01/25/17] Triamterene/Hydrochlorothiazid [Triamterene-Hctz 37.5-25 mg Tb] 1 each PO DAILY 01/26/17 [Last Taken 01/25/17] Warfarin Sodium [Coumadin 5MG (*)] 5 mg PO DAILY16 01/26/17 [Last Taken 01/25/17 ] lamoTRIgine [LamICTAL 100 MG (*)] 200 mg PO BID 01/26/17 [Last Taken 01/25/17 21 :00] I have personally reviewed and updated: family history, medical history, social history, surgical history - Past Medical History Additional medical history: dementia. 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 pt is wheelchair dependent. hypothyroidism. hx DVT on coumadin s/p IVC filter placement. BPH. benign essential HTN - Surgical History Additional surgical history: IVC filter. neurosurgical intervention for AVM. TURP. g tube insertion/removal. - Family History Additional family history: parents . patient child presumed healthy but step-daughter at bedside unsure. - Social History Smoking Status: Former smoker Alcohol Use: Sober Additional social history: Patient is . Resides at [facility]. wheelchair dependent. COR - DNR/DNI. MDPOA. Review of Systems Review of Systems: Unable to complete due to mental status Physical Exam Physical Exam: Temp Pulse Resp BP Pulse Ox 37.5 C 80 16 114/77 95 11/07/17 21:00 11/07/17 21:00 11/07/17 21:00 11/07/17 21:00 11/07/17 21:00 O2 (L/minute) 2 Constitutional: no apparent distress, chronically ill appearing Eyes: PERRL Ears, Nose, Mouth, Throat: moist mucous membranes Cardiovascular: regular rate and rhythym Respiratory: no respiratory distress, clear to auscultation Gastrointestinal: soft, non-tender abdomen Genitourinary: no bladder tenderness Skin: warm Musculoskeletal: no muscle tenderness Neurologic: No AAOx3 Psychiatric: No interacting appropriately Lab Data & Imaging Review 11/07/17 17:52 11/07/17 17:52 WBC 9.12 10^3/uL (3.80-9.50) 11/07/17 17:52 RBC 5.23 10^6/uL (4.40-6.38) 11/07/17 17:52 Hgb 14.6 g/dL (13.7-17.5) 11/07/17 17:52 Hct 43.9 % (40.0-51.0) 11/07/17 17:52 MCV 83.9 fL (81.5-99.8) 11/07/17 17:52 MCH 27.9 pg (27.9-34.1) 11/07/17 17:52 MCHC 33.3 g/dL (32.4-36.7) 11/07/17 17:52 RDW 13.3 % (11.5-15.2) 11/07/17 17:52 Plt Count 217 10^3/uL (150-400) 11/07/17 17:52 MPV 9.2 fL (8.7-11.7) 11/07/17 17:52 Neut % (Auto) 78.1 % (39.3-74.2) H 11/07/17 17:52 Lymph % (Auto) 8.1 % (15.0-45.0) L 11/07/17 17:52 [place] % (Auto) 12.3 % (4.5-13.0) 11/07/17 17:52 Eos % (Auto) 0.2 % (0.6-7.6) L 11/07/17 17:52 Baso % (Auto) 0.3 % (0.3-1.7) 11/07/17 17:52 Nucleat RBC Rel Count 0.0 % (0.0-0.2) 11/07/17 17:52 Absolute Neuts (auto) 7.12 10^3/uL (1.70-6.50) H 11/07/17 17:52 Absolute Lymphs (auto) 0.74 10^3/uL (1.00-3.00) L 11/07/17 17:52 Absolute Monos (auto) 1.12 10^3/uL (0.30-0.80) H 11/07/17 17:52 Absolute Eos (auto) 0.02 10^3/uL (0.03-0.40) L 11/07/17 17:52 Absolute Basos (auto) 0.03 10^3/uL (0.02-0.10) 11/07/17 17:52 Absolute Nucleated RBC 0.00 10^3/uL (0-0.01) 11/07/17 17:52 Immature Gran % 1.0 % (0.0-1.1) 11/07/17 17:52 Immature Gran # 0.09 10^3/uL (0.00-0.10) 11/07/17 17:52 PT 36.2 SEC (12.0-15.0) H 11/07/17 17:52 INR 3.68 (0.83-1.16) H 11/07/17 17:52 APTT 48.2 SEC (23.0-38.0) H 11/07/17 17:52 VBG Lactic Acid 0.8 mmol/L (0.7-2.1) 11/07/17 18:15 Sodium 128 mEq/L (135-145) L 11/07/17 17:52 Potassium 4.1 mEq/L (3.3-5.0) 11/07/17 17:52 Chloride 91 mEq/L (97-110) L 11/07/17 17:52 Carbon Dioxide 22 mEq/l (22-31) 11/07/17 17:52 Anion Gap 15 mEq/L (8-16) 11/07/17 17:52 BUN 17 mg/dL (7-23) 11/07/17 17:52 Creatinine 1.2 mg/dL (0.7-1.3) 11/07/17 17:52 Estimated GFR 59 11/07/17 17:52 Glucose 101 mg/dL (70-100) H 11/07/17 17:52 Calcium 9.4 mg/dL (8.5-10.4) 11/07/17 17:52 Total Bilirubin 0.8 mg/dL (0.1-1.4) 11/07/17 17:52 Urine Color YELLOW 11/07/17 20:25 Urine Appearance MODERATELY TURBID 11/07/17 20:25 Urine pH 6.0 (5.0-7.5) 11/07/17 20:25 Ur Specific [place] 1.017 (1.002-1.030) 11/07/17 20:25 Urine Protein 1+ (NEGATIVE) H 11/07/17 20:25 Urine Ketones NEGATIVE (NEGATIVE) 11/07/17 20:25 Urine Blood 3+ (NEGATIVE) H 11/07/17 20:25 Urine Nitrate POSITIVE (NEGATIVE) H 11/07/17 20:25 Urine Bilirubin NEGATIVE (NEGATIVE) 11/07/17 20:25 Urine Urobilinogen NEGATIVE EU (0.2-1.0) 11/07/17 20:25 Ur Leukocyte Esterase 3+ (NEGATIVE) H 11/07/17 20:25 Urine RBC 50-182 /hpf (0-3) H 11/07/17 20:25 Urine WBC 50-182 /hpf (0-3) H 11/07/17 20:25 Ur Epithelial Cells NONE SEEN /lpf (NONE-1+) 11/07/17 20:25 Urine Bacteria 2+ /hpf (NONE SEEN) H 11/07/17 20:25 Urine Mucus TRACE /lpf (NONE-1+) 11/07/17 20:25 Urine Glucose NEGATIVE (NEGATIVE) 11/07/17 20:25 Visualized and Interpreted Chest x-ray results: Yes Chest X-Ray results: no infiltrate Assessment & Plan Assessment: Urinary Tract Infection - Reported fever at halfway of 38.4 - Febrile on admission, UA with +Nitrite, +LE, 50-182 WBC, 2+ Bacteria - Hx of Pseudomonas UTI - ED MD discussed with Dr. Camara, ID, who recommended starting Cefepime - F/u urine culture, tailor abx based on results Hyponatremia - Na 128 on admission - Likely Hypovolemic Hyponatremia - Will send urine studies including Urine Na, Serum/Urine Osm - IVF vs. Fluid restriction based on above testing - Continue to monitor BMP Supratherapeutic INR - INR 3.68 on admission - No s/s of bleeding, will hold Coumadin Hx of DVT - Holding Coumadin as above, restart when therapeutic Hypothyroidism - Continue home Synthroid Hx of CVA/Seizure - Continue home Lamotrigine HTN - Hold home Triamterene/HCTZ in setting of infection - Restart as BP tolerates FEN: IVF NS@50 ml/hr Ppx: Coumadin Dispo: Admit to Medicine
[2017-11-07] MEDS ORDERED: NS 1,000 ML IV SCH (22:00)
[2017-11-08] MEDS ORDERED: CEFEPIME HCL 2 GM in NS 100 ML IV SCH (09:00)
[2017-11-08] MEDS: lamoTRIgine 100 MG TAB PO SCH ×2 (09:29→22:12)
[2017-11-08] MEDS: LEVOTHYROXINE 100 MCG TAB PO SCH (09:30)
[2017-11-08] MEDS: TAMSULOSIN HCL 0.4 MG CAP PO SCH (09:30)
--- NOTE | 2017-11-08 12:05 | PCMIDPN ---
Assessment/Plan: Assessment/Plan: * Fever: Primary considerations are for urinary tract infection versus possible onset of right lower extremity cellulitis noted on physical examination. Most recent urine culture had shown growth of Pseudomonas which was susceptible to all typical anti pseudomonal agents. Will continue empiric cefepime pending additional culture data - think can use 1 g IV q.12 hours given high levels achieved in urine. Urine culture was not set up at time of presentation and I have asked microbiology laboratory to do so. * Positive blood culture: 1/2 sets with GPCs in clusters. Unclear if this represents true pathogen versus skin contaminant. Await BCID prior to modification of antibiotic therapy given his clinical stability. Time spent, greater than 35 min, which greater than half was spent in coordination of care related to fever and diagnostic considerations as well as plan of care. Care coordinated with nursing staff and patient's who is currently in [place] by phone. 11/08/17 12:01 Subjective: Patient known to me from recent outpatient visit on 10/14/2017 for evaluation of UTI with recent urine culture showing Pseudomonas aeruginosa susceptible to typical anti pseudomonal drugs. At that time was not having any dysuria but was having intermittent hematuria which has been chronic. Yesterday patient was noted to have fever greater than 101 prompting evaluation in the emergency department. History difficult to obtain from patient although he notes that he did have painful urination. Typically he urinates on his own during the day and uses a condom catheter at night. He does not note any other symptoms. Review with his by phone does not note any preceding erythema over right lower extremity. Temperature noted to be 38.4 in the emergency department with pyuria on urinalysis. Patient was started empirically on cefepime after discussion with me given prior history of Pseudomonas. Respiratory PCR was negative. Allergies: Levofloxacin associated with rash; his notes that he has tolerated ciprofloxacin without difficulty in the past Objective: Vital Signs Temp Pulse Resp BP Pulse Ox 37.3 C 77 16 119/70 95 11/08/17 11:07 11/08/17 11:07 11/08/17 11:07 11/08/17 11:07 11/08/17 11:07 Laboratory Results 11/08/17 04:45 11/08/17 04:45 11/07/17 11/08/17 11/09/17 05:59 05:59 05:59 Intake Total 750 Output Total 1050 200 Balance -300 -200 Cefepime # 1 Blood cultures 1/2 sets GPCs in clusters Urine culture pending Respiratory pathogen panel by PCR negative - Physical Exam General Appearance: alert, no apparent distress, non-toxic EENT: No scleral icterus, No thrush, No conjunctival petechiae Respiratory: lungs clear, No respiratory distress Cardiac/Chest: regular rate, rhythm Extremities: inflammation (Right knee with overlying erythema and warmth with erythema extending over anterolateral thigh with tenderness present; erythema also present over left knee) Abdomen: non-tender, No distended Skin: No embolic lesions Neuro/Psych: other (Patient does not appear changed from when I saw him in the office earlier this month; contractures of upper extremities present) Lymphatic: adenopathy (Right shotty inguinal node present without tenderness or lymphangitis) ICD10 Worksheet Patient Problems: Problems Problem Status Onset Chest pain Acute Cholecystitis Acute Fever Acute Hyponatremia Acute Urinary tract infection Acute Sepsis Acute
--- NOTE | 2017-11-08 12:35 | PDMN ---
Medical Necessity Medical necessity: Pt meets IP criteria per MD & MCG M-300; est los >2 mn for eval/tx of UTI w/painful urination, temp of 38.4, hyponatremia (Na 128), decreased PO intake & supratherapeutic INR; requiring further monitoring, IV abx , ID consult, IVFs, follow-up labs & med management; hx pseudomonas UTI, CVA w/ residual R-sided contractures, WC bound, aphasia, dementia, DVT on AC, HTN, seizures; per H&P & order 11/07/17
[2017-11-08] MEDS ORDERED: GUAIFENESIN/DM 10 ML UDCUP PO PRN (12:54)
[2017-11-08] MEDS ORDERED: NYSTATIN POWDER 15 GM BTL TP PRN (12:54)
[2017-11-08] MEDS ORDERED: POLYETHYLENE GLYCOL 3350 17 GM PKT PO PRN (12:54)
[2017-11-08] MEDS: DUTASTERIDE 0.5 MG CAP PO SCH (14:06)
[2017-11-08 14:15] LABS: INR 3.53 (0.83-1.16); PROTIME(PATIENT) 35.1 SEC (12.0-15.0)
--- NOTE | 2017-11-08 15:01 | HOSPPROG ---
Hospitalist Progress Note Assessment/Plan: 77 yo M w cva w r hemiparesis, dementia, dvt here w fever and uti uti: h/o pseudomonas on cefepime await culture DVT: inr supratherapeutic hold coumadin today; folow inr daily STACIE: cr trending down likely pre renal CVA: pt/ot BPH: continue meds dispo: inpt Subjective: case d/w dr sparrow Objective: Vital Signs Temp Pulse Resp BP Pulse Ox 37.3 C 77 16 119/70 95 11/08/17 11:07 11/08/17 11:07 11/08/17 11:07 11/08/17 11:07 11/08/17 11:07 Laboratory Results 11/08/17 04:45 11/08/17 04:45 11/07/17 11/08/17 11/09/17 05:59 05:59 05:59 Intake Total 750 Output Total 1050 200 Balance -300 -200 PT 35.1 SEC (12.0-15.0) H 11/08/17 13:25 INR 3.53 (0.83-1.16) H 11/08/17 13:25 - Physical Exam Constitutional: no apparent distress, appears nourished Eyes: PERRL, anicteric sclera Ears, Nose, Mouth, Throat: moist mucous membranes, hearing normal Cardiovascular: regular rate and rhythym, no murmur, rub, or gallop Respiratory: no respiratory distress, no rales or rhonchi Gastrointestinal: normoactive bowel sounds, soft, non-tender abdomen Genitourinary: pineda in urethra Skin: warm, normal color, other (no redness on thigh) Musculoskeletal: No full muscle strength Neurologic: No AAOx3 Psychiatric: interacting appropriately ICD10 Worksheet Patient Problems: Problems Problem Status Onset Fever Acute Hyponatremia Acute Sepsis Acute Urinary tract infection Acute Chest pain Acute Cholecystitis Acute
--- NOTE | 2017-11-08 15:33 | ASMTCASEMG ---
Living Arrangements What is your living Answers: With Spouse arrangement? Who do you live with? Type Of Residence What kind of residence do Answers: Assisted Living you live in? Type of Residence Facility Name Notes: [facility] Discharge Plan Comments Coordination Status Comments Notes: Pt is a 77 y/o man admitted for a fever, UTI and hyponatremia. ID has been consulted and therapies have been ordered and awaiting recommendations. Needs are TBD at this time. CM available for changes. Plan: TBD Date Signed: 11/08/2017 03:32 PM Electronically Signed By:SHREE Gomez
[2017-11-08] MEDS ORDERED: WARFARIN SODIUM 7.5 MG TAB PO SCH (16:00)
[2017-11-08] MEDS: SENNOSIDES/DOCUSATE SODIUM TAB PO SCH (22:12)
[2017-11-08] MEDS: CEFEPIME HCL 1 GM in NS 50 ML IV SCH (22:13)
[2017-11-09 05:05] LABS: PLATELET COUNT 165 10^3/uL (150-400)
[2017-11-09 05:16] LABS: INR 3.17 (0.83-1.16); PROTIME(PATIENT) 32.3 SEC (12.0-15.0)
[2017-11-09] MEDS: CEFEPIME HCL 1 GM in NS 50 ML IV SCH ×2 (08:39→20:20)
--- NOTE | 2017-11-09 08:46 | HOSPPROG ---
Hospitalist Progress Note Assessment/Plan: #Pseudomonas UTI: await sensitivities. Cefepime #Fever: UTI vs. RUE/ RLE cellulitis. h/o Pseudomonas UTI. Cont Cefepime #h/o CVA with right hemiparesis #h/o DVT: INR supratherapeutic. Hold coumadin #Leukocytosis: resolved with abx #Dementia #Coag negative + blood culture: does have erythema RUE, RLE. Will d/w ID about coverage #Hyponatremia: IVFs, repeat in morning #Diet: cardiac #Disp: cont inpatient admission for IV abx Subjective: no acute events overnight Objective: Vital Signs Temp Pulse Resp BP Pulse Ox 36.5 C 71 16 94/57 L 89 L 11/09/17 08:00 11/09/17 08:00 11/09/17 08:00 11/09/17 08:00 11/09/17 08:00 Microbiology 11/08/17 16:17 Urine Culture - Final Unspecified Laboratory Results 11/09/17 05:00 11/09/17 05:00 11/08/17 11/09/17 11/10/17 05:59 05:59 05:59 Intake Total 750 0 Output Total 1050 1100 Balance -300 -1100 PT 32.3 SEC (12.0-15.0) H 11/09/17 05:00 INR 3.17 (0.83-1.16) H 11/09/17 05:00 - Time Spent With Patient Time Spent with Patient: greater than 35 minutes Time Spent with Patient: Greater than 35 minutes spent on this patients care, greater than 50% of time spent counseling, educating, and coordinating care regarding the above mentioned plan. - Physical Exam Constitutional: no apparent distress Eyes: PERRL Ears, Nose, Mouth, Throat: moist mucous membranes Cardiovascular: regular rate and rhythym Respiratory: no respiratory distress Gastrointestinal: normoactive bowel sounds Genitourinary: no bladder fullness, no bladder tenderness, No pineda in urethra Musculoskeletal: other (right arm contracted. Erythema of upper forearm, elbow not involved. Scabbed lesion in that area. Mild erythema RLE) Neurologic: other (dysarthria ) Psychiatric: encephalopathic ICD10 Worksheet Patient Problems: Problems Problem Status Onset Fever Acute Hyponatremia Acute Sepsis Acute Urinary tract infection Acute Chest pain Acute Cholecystitis Acute
[2017-11-09] MEDS ORDERED: Herbals/Supplements -Info Only PO SCH (09:00)
[2017-11-09] MEDS: lamoTRIgine 100 MG TAB PO SCH ×2 (10:44→20:20)
[2017-11-09] MEDS: SENNOSIDES/DOCUSATE SODIUM TAB PO SCH ×2 (10:44→20:20)
[2017-11-09] MEDS: LEVOTHYROXINE 100 MCG TAB PO SCH (10:45)
[2017-11-09] MEDS: MULTIVITAMINS 1 EACH TAB PO SCH (10:45)
[2017-11-09] MEDS: DUTASTERIDE 0.5 MG CAP PO SCH (10:45)
[2017-11-09] MEDS: TAMSULOSIN HCL 0.4 MG CAP PO SCH (10:45)
[2017-11-09] MEDS: NS 1,000 ML IV SCH (10:46)
--- NOTE | 2017-11-09 19:07 | PCMIDPN ---
Assessment/Plan: Assessment/Plan: * Fever: Primary considerations are for urinary tract infection versus possible onset of right lower extremity cellulitis noted on physical examination. Urine culture shows greater than 100,000 Pseudomonas. Erythema present over right lower extremity fully resolved today. Continue cefepime and follow clinical course. No further fever since initiation of antibiotic therapy. * Positive blood culture: 1/2 sets with coagulase-negative Staphylococcus. Consistent with contamination rather than true bacteremia. No targeted therapy needed. 11/09/17 19:03 Subjective: Patient states he feels better. Denies any residual dysuria although history difficult to obtain. Objective: Vital Signs Temp Pulse Resp BP Pulse Ox 36.5 C 75 16 95/55 L 94 11/09/17 15:17 11/09/17 15:17 11/09/17 15:17 11/09/17 15:17 11/09/17 15:17 Microbiology 11/08/17 16:17 Urine Culture - Final Unspecified Laboratory Results 11/09/17 05:00 11/09/17 05:00 11/08/17 11/09/17 11/10/17 05:59 05:59 05:59 Intake Total 750 0 600 Output Total 1050 1100 1200 Balance -300 -1100 -600 Cefepime # 2 Urine culture greater than 100,000 Pseudomonas aeruginosa Blood cultures 1/2 sets coagulase-negative Staphylococcus - Physical Exam General Appearance: no apparent distress EENT: No scleral icterus Respiratory: lungs clear, No respiratory distress Cardiac/Chest: regular rate, rhythm Extremities: inflammation (Erythema over right lateral thigh fully resolved) Abdomen: non-tender, No distended ICD10 Worksheet Patient Problems: Problems Problem Status Onset Fever Acute Hyponatremia Acute Sepsis Acute Urinary tract infection Acute Chest pain Acute Cholecystitis Acute
[2017-11-10] MEDS: NS 1,000 ML IV SCH ×2 (02:47→13:19)
[2017-11-10 05:18] LABS: INR 2.69 (0.83-1.16); PROTIME(PATIENT) 28.5 SEC (12.0-15.0)
[2017-11-10] MEDS: CEFEPIME HCL 1 GM in NS 50 ML IV SCH ×2 (09:25→21:17)
[2017-11-10] MEDS: SENNOSIDES/DOCUSATE SODIUM TAB PO SCH ×2 (09:25→21:18)
[2017-11-10] MEDS: DUTASTERIDE 0.5 MG CAP PO SCH (09:26)
[2017-11-10] MEDS: LEVOTHYROXINE 100 MCG TAB PO SCH (09:26)
[2017-11-10] MEDS: MULTIVITAMINS 1 EACH TAB PO SCH (09:26)
[2017-11-10] MEDS: lamoTRIgine 100 MG TAB PO SCH ×2 (09:26→21:18)
[2017-11-10] MEDS: TAMSULOSIN HCL 0.4 MG CAP PO SCH (09:27)
--- NOTE | 2017-11-10 11:20 | ASMTCMCOM ---
CM Note CM Note Notes: CM spoke to pts Alma Rosa on the phone. Therapies are recommending HC at [facility]. Alma Rosa would like to use [facility] and reports that pt has used [facility] in the past. [facility] is able to accept. CM provided [facility] the phone number for Alma Rosa. Alma Rosa is hoping for the same PT/OT. ID is involved and pt is currently getting ivabx. CM spoke to [facility] and they are aware of his admission. [place] reports that pt does not have a current caregiver or a HC agency. [place] does not have a preference on HC agency for pt to use. CM to follow. Plan: [facility]; PT, OT, RN Date Signed: 11/10/2017 11:19 AM Electronically Signed By:SHREE Gomez
--- NOTE | 2017-11-10 11:43 | HOSPPROG ---
Hospitalist Progress Note Assessment/Plan: #Pseudomonas UTI: await sensitivities. Cefepime #Hematuria: likely due to pineda and elevated INR. Remove pineda, hold coumadin, H /H stable #h/o CVA with right hemiparesis #h/o DVT: INR supratherapeutic. Hold coumadin #Leukocytosis: resolved with abx #Dementia #Coag negative + blood culture: does have erythema RUE, RLE. Will d/w ID about coverage #Hyponatremia: IVFs, repeat in morning #Diet: cardiac #Disp: cont inpatient admission for IV abx Subjective: denies pain. No N/V/D Objective: Vital Signs Temp Pulse Resp BP Pulse Ox 36.7 C 71 24 H 102/67 92 11/10/17 11:18 11/10/17 11:18 11/10/17 11:18 11/10/17 11:18 11/10/17 11:18 Microbiology 11/08/17 16:17 Urine Culture - Final Unspecified Laboratory Results 11/09/17 05:00 11/10/17 04:40 11/09/17 11/10/17 11/11/17 05:59 05:59 05:59 Intake Total 0 1362.3 320 Output Total 1100 1200 1200 Balance -1100 162.3 -880 PT 28.5 SEC (12.0-15.0) H 11/10/17 04:47 INR 2.69 (0.83-1.16) H 11/10/17 04:47 - Time Spent With Patient Time Spent with Patient: greater than 35 minutes Time Spent with Patient: Greater than 35 minutes spent on this patients care, greater than 50% of time spent counseling, educating, and coordinating care regarding the above mentioned plan. - Physical Exam Constitutional: no apparent distress Eyes: PERRL Ears, Nose, Mouth, Throat: moist mucous membranes Cardiovascular: regular rate and rhythym Respiratory: no respiratory distress Genitourinary: pineda in urethra (hematuria) Skin: other (RUE redness resolved) Neurologic: CN II-XII Intact Psychiatric: encephalopathic ICD10 Worksheet Patient Problems: Problems Problem Status Onset Fever Acute Hyponatremia Acute Sepsis Acute Urinary tract infection Acute Chest pain Acute Cholecystitis Acute
--- NOTE | 2017-11-10 19:07 | PCMIDPN ---
Assessment/Plan: Assessment/Plan: * Fever: Primary considerations are for urinary tract infection versus possible onset of right lower extremity cellulitis noted on physical examination. Given rapid resolution of right lower extremity erythema favor urinary etiology is likely source. Pseudomonas remains briggs susceptible isolate. Will plan to transition to oral ciprofloxacin tomorrow to complete therapy (previously discussed quinolone allergy when he was seen in the office earlier this month and noted by his spouse that he tolerates ciprofloxacin without difficulty). Plan 10 day course of antibiotics in total. * Positive blood culture: 1/2 sets with coagulase-negative Staphylococcus. Consistent with contamination rather than true bacteremia. No targeted therapy needed. 11/10/17 19:04 Subjective: Patient without specific complaints. Notes mild burning with urination. Overall history difficult to obtain as he often answers yes and then no. Objective: Vital Signs Temp Pulse Resp BP Pulse Ox 37.1 C 82 20 105/62 92 11/10/17 15:22 11/10/17 15:22 11/10/17 15:22 11/10/17 15:22 11/10/17 15:22 Laboratory Results 11/10/17 04:47 11/10/17 04:40 11/09/17 11/10/17 11/11/17 05:59 05:59 05:59 Intake Total 0 1362.3 1428 Output Total 1100 1200 1200 Balance -1100 162.3 228 Cefepime # 3 Urine culture greater than 100,000 Pseudomonas aeruginosa which is briggs susceptible to typical anti pseudomonal agents Blood cultures 1/2 sets coagulase-negative Staph - Physical Exam General Appearance: alert, non-toxic Respiratory: lungs clear, No respiratory distress Cardiac/Chest: regular rate, rhythm Abdomen: non-tender, No distended Skin: other (Erythema over right lateral thigh fully resolved) ICD10 Worksheet Patient Problems: Problems Problem Status Onset Fever Acute Hyponatremia Acute Sepsis Acute Urinary tract infection Acute Chest pain Acute Cholecystitis Acute
[2017-11-11] MEDS: NS 1,000 ML IV SCH (00:06)
[2017-11-11 05:27] LABS: INR 2.28 (0.83-1.16); PROTIME(PATIENT) 25.1 SEC (12.0-15.0)
[2017-11-11] MEDS: LEVOTHYROXINE 100 MCG TAB PO SCH (08:15)
[2017-11-11] MEDS: SENNOSIDES/DOCUSATE SODIUM TAB PO SCH (08:15)
[2017-11-11] MEDS: MULTIVITAMINS 1 EACH TAB PO SCH (08:15)
[2017-11-11] MEDS: CEFEPIME HCL 1 GM in NS 50 ML IV SCH (08:15)
[2017-11-11] MEDS: TAMSULOSIN HCL 0.4 MG CAP PO SCH (08:16)
[2017-11-11] MEDS: lamoTRIgine 100 MG TAB PO SCH (08:16)
[2017-11-11] MEDS: DUTASTERIDE 0.5 MG CAP PO SCH (08:16)
--- NOTE | 2017-11-11 09:07 | PCMIDPN ---
Assessment/Plan: # Fever due to UTI vs RLE cellulitis. Now AF multiple days. No erythema LE - suspect UTI --dc on Cipro 500mg PO BID x [address] Camara discussed w patient family prior and determined tolerance in the past (despite listed allergy to levoflox) --no ID fu needed --Check INR more frequently on Cipro, although very short duration # Blood cx w CoNS c/w contaminant meds cefepime 1gm IV q12h micro UCx PsA 100K briggs-S blood cx 1/2 CoNS Subjective: patient w/o complaints Objective: Vital Signs Temp Pulse Resp BP Pulse Ox 36.4 C 65 22 H 108/83 H 91 L 11/11/17 07:26 11/11/17 07:26 11/11/17 07:26 11/11/17 07:26 11/11/17 07:26 Laboratory Results 11/11/17 05:06 11/10/17 04:40 11/10/17 11/11/17 11/12/17 05:59 05:59 05:59 Intake Total 1362.3 1578 Output Total 1200 1250 Balance 162.3 328 - Physical Exam General Appearance: alert, no apparent distress Respiratory: No accessory muscle use Neck: supple Cardiac/Chest: regular rate, rhythm Extremities: pedal edema, No inflammation, No erythema Abdomen: normal bowel sounds, non-tender, soft Male Genitalia: No pineda Skin: No rash Neuro/Psych: alert, other (chronic dysarthria; old R hemiparesis) - Time Spent With Patient Time Spent with Patient: greater than 25 minutes Time Spent with Patient: Greater than 25 minutes spent on this patients care, greater than 50% of time spent counseling, educating, and coordinating care regarding the above mentioned plan. ICD10 Worksheet Patient Problems: Problems Problem Status Onset Fever Acute Hyponatremia Acute Sepsis Acute Urinary tract infection Acute Chest pain Acute Cholecystitis Acute
--- NOTE | 2017-11-11 10:47 | ASMTLACE ---
ELIZABETHE Length of stay for Answers: 3 days current admission Acuity / Level of Answers: Yes Care: Did the patient have an inpatient admission? Comorbidities - select Answers: Cerebrovascular disease all that apply (CVA, TIA, aneurysms, vasc ular dementia) Dementia Mild liver or renal disease Other Notes: Seizures; DVT; AFib # of Emergency department Answers: 1-2 visits in the last 6 months Score: 14 Date Signed: 11/11/2017 10:47 AM Electronically Signed By:Hodan Garcia RN
--- NOTE | 2017-11-11 12:09 | PDIAF ---
- Diagnosis Diagnosis: Pseudomonas UTI Code Status: Full Code - Medication Management Discharge Medications: Medications to Continue on Transfer Dutasteride [Avodart 0.5 MG (*)] 0.5 mg PO DAILY 10/07/12 [Last Taken 01/25/17] Tamsulosin HCl [Flomax 0.4 MG (*)] 0.4 mg PO DAILY 10/07/12 [Last Taken 01/25/17 ] Ergocalciferol [Vitamin D2 (*)] 50,000 unit PO Q30D 01/25/17 [Last Taken ] Herbals/Supplements -Info Only 1 ea PO DAILY 01/26/17 [Last Taken Unknown] Levothyroxine [Synthroid 100 mcg (*)] 100 mcg PO DAILY 01/26/17 [Last Taken ] Multivitamins [Multivitamin (*)] 1 each PO DAILY 01/26/17 [Last Taken 01/25/17] Sennosides/Docusate Sodium [Senna-S Tablet] 1 each PO BID 01/26/17 [Last Taken 01/25/17] lamoTRIgine [LamICTAL 100 MG (*)] 200 mg PO BID 01/26/17 [Last Taken 01/25/17 21 :00] Polyethylene Glycol 3350 [Miralax 17 gm (*)] 17 gm PO DAILY PRN pkt 01/30/17 [ Last Taken Unknown] Nystatin [Nystop] 1 dyana TP DAILY PRN 11/08/17 [Last Taken Unknown] guaiFENesin/DEXTROMETHORPHAN [Robitussin Dm Oral Liquid (*)] 10 ml PO Q4 PRN [Last Taken Unknown] Ciprofloxacin [Cipro] 500 mg PO BID #12 tab 11/11/17 [Last Taken Unknown] Discharge Medications: Refer to the Discharge Home Medication list for PRN reason. - Orders Services needed: Home Care, Registered Nurse, Certified Armhole Sewer, Physical Therapy, Occupational Therapy Home Care Face to Face: I certify that this patient was under my care and that I had the required [id number] encounter meeting the encounter requirements on the discharge day. My findings support the fact that the patient is homebound as defined in Home Care Face to Face Continued: CMS Chapter 7 Medicare Benefits Manual 30.1.1 , The condition of the patient is such that there exists a normal inability to leave home and consequently, leaving home would require a considerable and taxing effort. Isolation Type: None Diet Texture: Regular Texture Diet, Thin Liquids, Meds Whole in Puree - Labs/Radiology PT/INR Date: 11/12/17 (INR daily. Interacts with Cipro) - Follow Up Care Current Providers and Referrals: Patient,NotPresent [Unknown] - As per Instructions
[2017-11-11 12:32] VITALS: BP 115/68
--- NOTE | 2017-11-11 12:41 | GDS ---
DISCHARGE DIAGNOSES: 1. Fever. 2. Pseudomonas urinary tract infection. 3. Positive blood culture for coagulase negative Staphylococcus. 4. Dementia. 5. History of cerebrovascular accident with right hemiparesis. 6. History of deep venous thrombosis. 7. Supratherapeutic INR. 8. Hematuria. 9. Hyponatremia. HISTORY OF PRESENT ILLNESS: A 77-year-old male with history of dementia, CVA, and prior DVT, presenting to [facility] for evaluation of fever. The patient is not a good historian. This initial assessment was done through chart review. At [facility], he had a fever of 38.4. HOSPITAL COURSE BY PROBLEM: 1. Fever: Culture positive for Pseudomonas urinary tract infection. He did have right lower extremity redness, which has since resolved. We will transition to ciprofloxacin 500 mg twice daily for 6 more days. 2. History of CVA. Continue home medications. 3. History of DVT: INR therapeutic greater than 3. I have decreased his dose of Coumadin to 5, given it was elevated and will interact with ciprofloxacin. Will require daily INR. 4. Hematuria: Likely trauma from Youssef and elevated INR. Resolved. Monitor closely with Coumadin. 5. Dementia: Stable for discharge back to his [facility]. 6. Coag-positive blood culture: This is likely contamination. There was some redness of his lower extremity, but this resolved. 7. Hyponatremia: Secondary to dehydration and diuretic. This is stable. 8. Acute kidney injury: Creatinine was elevated at 1.2, baseline was 0.9, this has resolved. 9. Hypertension: Holding triamterene/hydrochlorothiazide given soft blood pressures here. May restart if needed as an outpatient. DISPOSITION: Patient is stable for discharge back to nursing facility. MEDICATIONS: New medication: Ciprofloxacin 500 mg twice daily for 6 days. Change medications: 1. Decrease Coumadin to 5 mg daily. 2. Discontinue triamterene/hydrochlorothiazide 37.5/25 mg. FOLLOWUP: 1. Daily INRs with ciprofloxacin and Coumadin interaction. 2. Primary care physician. PHYSICAL EXAMINATION: VITAL SIGNS: Temperature 36.4, blood pressure 108/83, heart rate in the 60s, respirations 20, 91% on room air. GENERAL: No acute distress. HEENT: PERRLA. Moist mucous membranes. CV: Regular rate and rhythm. LUNGS: Lungs are clear. ABDOMEN: Soft, nontender. MUSCULOSKELETAL: Right upper extremity contractures. : Youssef with clear urine. NEURO: Cranial nerves 2 through 12 intact. PSYCH: He answers some questions appropriately. TIME SPENT ON DISCHARGE: Time spent on discharge greater than 30 minutes, coordinating with case management to nursing facility. /[id number]/MODL MTDD
--- NOTE | 2017-11-11 13:28 | ASMTDCNOTE ---
Case Management Discharge Discharge Order Complete? Answers: Yes Patient to Obtain Answers: Other Notes: [place] Medications Transportation Arranged Answers: Other Notes: [facility] Transport will Pick (Date 11/11/2017 03:30 PM & Time) Faxed Final Orders Answers: Yes Agency/Facility Transfer Answers: Yes Report Printed & Faxed to Receiving Agency Family Notified Answers: Yes Discharge Comments Notes: D/w MD, final orders faxed. [facility] at [facility] notified, RN to call report. spoke w/ Alma Rosa who is out of state about transporting pt back to [facility] [place]. She is ok with using a transportation service and cost of $60. Date Signed: 11/11/2017 01:27 PM Electronically Signed By:Hodan Garcia RN
[2017-11-11] MEDS ORDERED: WARFARIN SODIUM 5 MG TAB PO SCH (16:00)
--- NOTE | 2017-11-12 15:32 | ASDISCHSUM ---
Discharge Information Plan Status:Assisted Living Medically Cleared to Leave: Discharge Date:11/11/2017 03:57 PM CM D/C Disposition:Assisted Living ADT D/C Disposition:[facility] Facility Projected Discharge Date:11/10/2017 11:00 AM Transportation at D/C:Wheelchair Van Discharge Delay Reason: Follow-Up Date:11/10/2017 11:00 AM Discharge Slot: Final Diagnosis: Placement Information Referral Type:*Home Health Care Services Referral ID:[id number] Provider Name:[facility] Care Address 1:[address] [facility] [address] Address 2: City:[place] Selection Factors: State:[place] Referral Type:Assisted Living Residence Referral ID:[id number] Provider Name:Critical access hospital/[facility] Address 1:[address] Address 2: City:[place] Selection Factors: State:[place] Patient Contact Information Contact Name:AMBER Relationship: Address:[address] City:[place] Alternate Phone: [facility]/Zip Code:[place] [address] Email: Financial Information Financial Class:Medicare Primary Plan Desc:MEDICARE INPATIENT Primary Plan Number:[id number] Secondary Plan Desc: OUT OF [facility] Secondary Plan Number:[id number] Assessment Information [facility] Initial CM Assessment Living Arrangements What is your living Answers: With Spouse arrangement? Who do you live with? Type Of Residence What kind of residence do Answers: Assisted Living you live in? Type of Residence Facility Name Notes: [facility] Discharge Plan Comments Coordination Status Comments Notes: Pt is a 77 y/o man admitted for a fever, UTI and hyponatremia. ID has been consulted and therapies have been ordered and awaiting recommendations. Needs are TBD at this time. CM available for changes. Plan: TBD Date Signed: 11/08/2017 03:32 PM Electronically Signed By:SHREE Gomez LACE LACKaruna Length of stay for Answers: 3 days current admission Acuity / Level of Answers: Yes Care: Did the patient have an inpatient admission? Comorbidities - select Answers: Cerebrovascular disease all that apply (CVA, TIA, aneurysms, vasc ular dementia) Dementia Mild liver or renal disease Other Notes: Seizures; DVT; AFib # of Emergency department Answers: 1-2 visits in the last 6 months Score: 14 Date Signed: 11/11/2017 10:47 AM Electronically Signed By:Hodan Garcia RN [facility] CM Progress Note CM Note CM Note Notes: CM spoke to pts Alma Rosa on the phone. Therapies are recommending HC at [facility]. Alma Rosa would like to use [facility] and reports that pt has used [facility] in the past. [facility] is able to accept. CM provided HC the phone number for Alma Rosa. Alma Rosa is hoping for the same PT/OT. ID is involved and pt is currently getting ivabx. CM spoke to [facility] and they are aware of his admission. [facility] reports that pt does not have a current caregiver or a HC agency. [facility] does not have a preference on HC agency for pt to use. CM to follow. Plan: [facility]; PT, OT, RN Date Signed: 11/10/2017 11:19 AM Electronically Signed By:SHREE Gomez Case Management Discharge Plan Note Case Management Discharge Discharge Order Complete? Answers: Yes Patient to Obtain Answers: Other Notes: [facility] Medications Transportation Arranged Answers: Other Notes: [facility] [facility] Transport will Pick (Date 11/11/2017 03:30 PM & Time) Faxed Final Orders Answers: Yes Agency/Facility Transfer Answers: Yes Report Printed & Faxed to Receiving Agency Family Notified Answers: Yes Discharge Comments Notes: D/w , final orders faxed. [facility] at [facility] notified, RN to call report. CM spoke w/ Alma Rosa who is out of state about transporting pt back to [facility]. She is ok with using a transportation service and cost of $60. Date Signed: 11/11/2017 01:27 PM Electronically Signed By:Hodan Garcia RN Intervention Information Intervention Type:*Incorrect Registration Date of Service:11/07/2017 10:05 AM Patient Type:Observation Staff Member:LISSETH Lord, Gabrielle Hours: Discipline: Severity: Comment: Intervention Type:*IM-Signed Date of Service:11/11/2017 01:48 PM Patient Type:Inpatient Staff Member:Nohemi Suarez Hours: Discipline: Severity: Comment:
[2017-11-23] MEDS ORDERED: ERGOCALCIFEROL 50,000 I.UNIT CAP PO SCH (13:00)
== END 2017-11-11 15:57 | disposition home health service (06) | DRG 690 ==
LOC: EDUNIT# → OBSVTOIN 21:00 → F3E 21:45
PROVIDERS: ADMIT Internal Medicine; ATTEND Internal Medicine
DX: N39.0 Urinary tract infection, site not specified (principal); B96.5 Pseudomonas (aeruginosa) (mallei) (pseudomallei) as the cause of diseases classified elsewhere; I69.351 Hemiplegia and hemiparesis following cerebral infarction affecting right dominant side; I69.320 Aphasia following cerebral infarction; E87.1 Hypo-osmolality and hyponatremia; N17.9 Acute kidney failure, unspecified; F03.90 Unspecified dementia, unspecified severity, without behavioral disturbance, psychotic disturbance, mood disturbance, and anxiety; R79.1 Abnormal coagulation profile; R31.9 Hematuria, unspecified; Z86.718 Personal history of other venous thrombosis and embolism; Z99.3 Dependence on wheelchair
CPT/HCPCS: 92610-GN; 96374; 97162-GP; 97166-GO; 97530-GO; 97530-GP; 97535-GO; G8978-GP-CL; G8979-GP-CJ; G8987-GO-CL; G8988-GO-CK; G8996-GN-CH; G8996-GN-CI; G8997-GN-CH; G8997-GN-CI; G8998-GN-CH; G8998-GN-CI; J0692

== ENCOUNTER 2018-04-28 15:34 | Inpatient (IN) | payer OTHER, BC ==
--- NOTE | 2018-04-28 15:47 | EDPHY ---
H & P Time Seen by Provider: 04/28/18 15:42 HPI/ROS: HPI: This is a 78-year-old male who presents with Chief Complaint: Blood in short Location: Quality: Hematuria Duration: This morning Signs and Symptoms: no fever, no nausea, no vomiting, no hematemesis, no blood in stool, no abdominal bloating, no diarrhea, no back pain, no urinary symptoms , no testicular/groin pain, no indigestion, no chest pain, no shortness of breath Timing: Acute Severity: Moderate Context: Patient presents via EMS from [facility] accompanied by complaints of a large baseball size blood clot in his depends found this morning by nursing and then blood in the toilet approximately 2 hr later when he urinated. Patient has a history of AFib, DVT and takes Coumadin. Uses a condom catheter at night. Does have a history of recurrent urinary tract infections treated with IV antibiotics-last one Pseudomonas October 2017. Denies fever, change in mental status, abdominal pain, nausea, vomiting. Followed by Dr. Sanchez. Modifying Factors: None Comment: ROS: A comprehensive 10 system review of systems is otherwise negative aside from elements mentioned in the history of present illness. MEDICAL/SURGICAL/SOCIAL HISTORY: Medical history: cva/hematuria/turp/focal motor seizures/acute renal failure/ DVT with IVC filter, dementia, chronic UTI, AFib, osteoprosis, right hemiplegia Surgical history: IVC filter, cholecystectomy, TURP Social history: Disabled, , nonsmoker. Family history noncontributory. CONSTITUTIONAL: Chronically ill-appearing nontoxic-appearing elderly white male , at bedside, awake and alert, no obvious distress HEENT: Atraumatic and normocephalic, PERRL, EOMI. Nares patent; no rhinorrhea; no nasal mucosal edema. Tympanic membranes clear. Oropharynx clear, no exudate and moist pink mucosa. Airway patent. No lymphadenopathy. No meningismus. Cardiovascular: Normal S1/S2, regular rate, regular rhythm, without murmur rub or gallop. PULMONARY/CHEST: Symmetrical and nontender. Clear to auscultation bilaterally. Good air movement. No accessory muscle usage. ABDOMEN: Soft, nondistended, nontender, no rebound, no guarding, no peritoneal signs, no masses or organomegaly. No CVAT. Male : 2 spots of bright red blood noted in depends; circumcised penis, bilateral descended testes, no testicular swelling, no testicular masses, no penile discharge, no lesions, negative Prehn's sign. EXTREMITIES: 2/2 pulses, strength 5/5, no deformities, no clubbing, no cyanosis or edema. NEUROLOGICAL: Right hemiplegia noted. SKIN: Warm and dry, no erythema. no rash. Good capillary refill. Source: Patient, Family () Exam Limitations: Clinical condition - Medical/Surgical History Hx Asthma: No Hx Chronic Respiratory Disease: No Hx Diabetes: No Hx Cardiac Disease: Yes Hx Renal Disease: No Hx Cirrhosis: No Hx Alcoholism: No Hx HIV/AIDS: No Hx Splenectomy or Spleen Trauma: No Other PMH: cva/hematuria/turp/focal motor seizures/acute renal failure/DVT with IVC filter, dementia, chronic UTI, AFib osteoprosis, - Social History Smoking Status: Former smoker Constitutional: Initial Vital Signs Temperature (C) 36.8 C 04/28/18 15:45 Heart Rate 95 04/28/18 15:45 Respiratory Rate 16 04/28/18 15:45 Blood Pressure 99/68 L 04/28/18 15:45 O2 Sat (%) 93 04/28/18 15:45 O2 Delivery Mode Room Air Allergies/Adverse Reactions: Penicillins Allergy (Intermediate, Verified 05/30/14 18:02) Rash ciprofloxacin Allergy (Unknown, Verified 04/28/18 20:45) levofloxacin Allergy (Unknown, Verified 04/28/18 20:45) Rash Home Medications: Medication Instructions Recorded Dutasteride [Avodart 0.5 MG (*)] 0.5 mg PO DAILY 10/07/12 Tamsulosin HCl [Flomax 0.4 MG (*)] 0.4 mg PO DAILY 10/07/12 Herbals/Supplements -Info Only 1 ea PO DAILY 01/26/17 Multivitamins [Multivitamin (*)] 1 each PO DAILY 01/26/17 Sennosides/Docusate Sodium 1 each PO BID 01/26/17 [Senna-S Tablet] lamoTRIgine [LamICTAL 100 MG (*)] 200 mg PO BID 01/26/17 Nystatin [Nystop] 1 dyana TP DAILY PRN 11/08/17 Cholecalciferol Vit D3 [Vitamin D3 2,000 units PO DAILY 04/28/18 (*)] Levothyroxine [Synthroid 125 mcg 125 mcg PO DAILY06 04/28/18 (*)] Triamterene/Hydrochlorothiazid 1 each PO DAILY 04/28/18 [Triamterene-Hctz 37.5-25 mg Tb] Warfarin Sodium [Coumadin 7.5MG 7.5 mg PO DAILY16 04/28/18 (*)] Medical Decision Making ED Course/Re-evaluation: Vital signs reviewed and stable upon arrival. No systemic signs. IV access, laboratory studies, urinalysis, CT abdomen and pelvis scan ordered 1605: RN showed me gross hematuria sample. 1610: I-STAT shows H&H 16.0/47, BUN 29, creatinine 1.4, potassium 3.8, INR 2.91 1704: Called by Radiology who advised CT abdomen and pelvis scan shows a mass that has increased in size since 2018 ED decision to consult hospitalist and Urology for admission. Spoke with hospitalist, Dr. Lou, who kindly agrees to admit patient and provide further care. Vital signs are stable at this time. No signs of sepsis. No crow signs of infection and will hold off on starting IV antibiotics and 3 way catheter insertion with continuous bladder irrigation until consultation with Urology. This patient was seen under the supervision of my primary supervising physician. I evaluated care for this patient with attending. Differential Diagnosis: Differential diagnosis includes but is not limited to her hematuria, urinary tract infection, bladder mass, prostatitis, nephrolithiasis, ureterolithiasis. - Data Points Laboratory Results: Laboratory Results 04/28/18 15:56 04/28/18 15:56 Medications Given: Dutasteride (Avodart) 0.5 mg PO DAILY DALE Stop: 10/26/18 08:59 Last Admin: 04/29/18 07:52 Dose: 0.5 mg Cefepime HCl 2 gm/ Sodium (Chloride) 100 mls @ 200 mls/hr IV Q12H DALE PRN Reason: Protocol Stop: 05/28/18 19:59 Last Admin: 04/29/18 07:53 Dose: 100 mls Sodium Chloride (Ns) 1,000 mls @ 75 mls/hr IV CONT DALE Stop: 10/25/18 17:59 Last Admin: 04/28/18 20:46 Dose: 1,000 mls Lamotrigine (Lamictal) 200 mg PO BID DALE Stop: 10/25/18 20:59 Last Admin: 04/29/18 07:52 Dose: 200 mg Levothyroxine Sodium (Synthroid) 125 mcg PO DAILY06 [facility] Stop: 10/26/18 05:59 Last Admin: 04/29/18 07:51 Dose: 125 mcg Senna/Docusate Sodium (Senokot-S) 1 tab PO BID [facility] Stop: 10/25/18 20:59 Last Admin: 04/29/18 07:52 Dose: 1 tab Tamsulosin HCl (Flomax) 0.4 mg PO DAILY [facility] Stop: 10/26/18 08:59 Last Admin: 04/29/18 07:52 Dose: 0.4 mg Discontinued Medications Lactated Ringer's (Lr) 1,000 mls @ 0 mls/hr IV ONCE ONE PRN Reason: As Directed Stop: 04/29/18 13:12 Last Admin: 04/29/18 16:08 Dose: Not Given Point of Care Test Results: Chemistry 04/28/18 16:03 POC Sodium 135 mEq/L mEq/L (135-145) POC Potassium 3.8 mEq/L mEq/L (3.3-5.0) POC Chloride 96 mEq/L L mEq/L (97-110) POC Total CO2 27 mEq/L mEq/L (22-31) POC BUN 33 mg/dL H mg/dL (7-23) POC Creatinine 1.4 mg/dL H mg/dL (0.7-1.3) POC Glucose 105 mg/dL H mg/dL (70-100) ISTAT H&H 04/28/18 16:03 POC Hgb 16.0 gm/dL gm/dL (13.7-17.5) POC Hct 47 % % (40-51) Departure - Departure Disposition: [facility] Inpatient Acute Clinical Impression: Gross hematuria, Chronic anticoagulation, Bladder mass, Acute renal insufficiency, Hyponatremia Condition: Fair
[2018-04-28 16:13] LABS: PLATELET COUNT 192 10^3/uL (150-400)
[2018-04-28 16:34] LABS: INR 2.91 (0.83-1.16); PROTIME(PATIENT) 28.9 SEC (12.0-15.0)
[2018-04-28] MEDS ORDERED: ONDANSETRON 4 MG/2 ML VIAL IVP PRN (17:53)
[2018-04-28] MEDS ORDERED: ONDANSETRON DISINTEGRATING 4 MG TAB PO PRN (17:53)
[2018-04-28] MEDS ORDERED: ACETAMINOPHEN 325 MG TAB PO PRN (17:53)
[2018-04-28] MEDS ORDERED: NYSTATIN POWDER 15 GM BTL TP PRN (18:26)
--- NOTE | 2018-04-28 18:27 | GHP ---
[f rep st] HISTORY AND PHYSICAL DATE OF ADMISSION: 04/28/2018 CHIEF COMPLAINT: Hematuria. HISTORY OF PRESENT ILLNESS: This is a 78-year-old man with a history of a stroke leaving him with ri ght-sided hemiplegia who presents with hematuria. He lives at [facility] and they noted a "baseball siz ed clot" in his depends this morning. He normally has a condom catheter on and they saw significant hematuria afterwards. There were also more clots. He has had frequent urinary tract infections, whi ch have involved a change in the color of his urine. His notes that he has been somewhat more l ethargic recently. He complained of some mild dysuria previously to her. She also notes that his pa in center was affected by his stroke and he does not experience pain the way that he did previously. He has a complicated urologic history including multiple recent visits to see Dr. Sanchez with [facility]. He had a cystoscopy a few months ago, his reports that the bladder was too cloudy to see a nything. He has a history of a bladder mass which Dr. Sanchez has been following. She does not kno w any more information about this. He is on anticoagulation for DVT. PAST MEDICAL/SURGICAL HISTORY: 1. 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 2. Hypothyroid. 3. Chronic urinary tract infections status post multiple courses of antibiotics, last one grew out P seudomonas aeruginosa. 4. DVT about 10 years ago. He has been on anticoagulation since. He has an IVC filter in place. 5. BPH. 6. Hypertension. 7. TURP in 2004. MEDICATIONS: Please see medication reconciliation. ALLERGIES: Penicillin, ciprofloxacin, levofloxacin. SOCIAL HISTORY: Lives at [facility]. He does not drink or smoke. He is accompanied by his . FAMILY HISTORY: No AVMs. REVIEW OF SYSTEMS: A 10-point review of systems is conducted and is negative except per HPI. PHYSICAL EXAM: VITAL SIGNS: Blood pressure 99/68, heart rate 95, respiration rate 16, sating 93% on room air, temperature 36.8. GENERAL: The patient is pleasant male who is lying in bed, in no acute distress. HEENT shows him to be normocephalic, atraumatic. CARDIOVASCULAR: Regular rate and rhythm. No murmurs, rubs, or gallops. PULMONARY: Exam shows his lungs to be clear to auscultation bilater ally. ABDOMEN: Soft, nontender, nondistended. He has no real suprapubic tenderness to palpation. SKIN: Shows no rash. exam: No Youssef. NEUROLOGIC: Shows him to have significant difficulty speak ing, he has right-sided hemiparesis. PSYCHIATRIC: Shows him to have normal mood and affect. LABS: White count is 16.5, INR is 2.9, sodium is 131, BUN is 29, creatinine is 1.3. Urinalysis was not performed although does report is red and cloudy. DATA: 1. Discussed this with Laureen Valentin PA-C. Will admit him to med/surg. 2. I reviewed his abdominal pelvic CT scan that showed a bladder mass, as well as a cystic renal mas s. IMPRESSION AND PLAN: 1. Hematuria differential includes urinary tract infection, as well as a known bladder mass. He is on anticoagulation for history of deep venous thrombosis in the setting of being very sedentary. Trina ruiz has been consulted by the emergency department. He certainly may need a 3-way Youssef with continu ous bladder irrigation. However, I will defer to Urology on management of this. Would also consider cystoscopy given the bladder mass. I think the risk of holding anticoagulation is pretty significan t now, I will not reverse him but hold his warfarin for the time being. We can follow his hematuria very closely. 2. Bladder mass: Urology has been following this as an outpatient. 3. Cystic renal mass: This is also appropriate for urologic follow up. 4. Acute kidney injury: Suspect prerenal. I will put him on fluids and recheck his creatinine in t he morning. 5. Possible urinary tract infection: Given his lethargy, as well as hematuria and significant leuko cytosis, I think it is appropriate to start him on treatment at this point. I will give him cefepime , which would cover his previous Pseudomonas. 6. History of deep venous thrombosis 10 years ago. Will hold warfarin, but not reverse him as above . 7. History of a cerebrovascular accident with right-sided hemiparesis: He seems to be at his baseli ne. His is very helpful in providing history. 8. Code status: He is full code. I confirmed this with his . /[id number]/MODL
[2018-04-28] MEDS: CEFEPIME HCL 2 GM in NS 100 ML IV SCH (20:46)
[2018-04-28] MEDS: NS 1,000 ML IV SCH (20:46)
[2018-04-28] MEDS: SENNOSIDES/DOCUSATE SODIUM TAB PO SCH (20:47)
[2018-04-28] MEDS: lamoTRIgine 100 MG TAB PO SCH (20:47)
[2018-04-29 05:27] LABS: PLATELET COUNT 160 10^3/uL (150-400)
[2018-04-29] MEDS: LEVOTHYROXINE 125 MCG TAB PO SCH (07:51)
[2018-04-29] MEDS: DUTASTERIDE 0.5 MG CAP PO SCH (07:52)
[2018-04-29] MEDS: TAMSULOSIN HCL 0.4 MG CAP PO SCH (07:52)
[2018-04-29] MEDS: SENNOSIDES/DOCUSATE SODIUM TAB PO SCH ×2 (07:52→19:28)
[2018-04-29] MEDS: lamoTRIgine 100 MG TAB PO SCH ×2 (07:52→19:28)
[2018-04-29] MEDS: CEFEPIME HCL 2 GM in NS 100 ML IV SCH ×2 (07:53→19:26)
--- NOTE | 2018-04-29 11:58 | GCON ---
[f rep st] CONSULTATION DATE OF CONSULTATION: 04/29/2018 REASON FOR CONSULTATION: Gross hematuria with clots. HISTORY OF PRESENT ILLNESS: This is a 78-year-old male who is well-known to our office under the car e of Dr. Sanchez. He presented to the emergency room with a baseball sized blood clots, but was den dick bladder pain, fever, or chills. He has had a workup for hematuria with Dr. Sanchez, including a cystoscopy this past summer that revealed prostatomegaly, but no obvious bladder tumors. He has be en undergoing workup and evaluation with Dr. Sanchez to consider a suprapubic prostatectomy versus G reenLight laser versus other to reduce the size of his prostate. He has also had a history of UTIs, including most recent with Pseudomonas treated by Dr. Camara. PAST MEDICAL/SURGICAL HISTORY: CVA with right-sided hemiparalysis due to AVM, hypothyroid, chronic u rinary tract infections, DVT 10 years ago, has an IVC filter, BPH, hypertension, TURP in 2004. MEDICATIONS: See medication reconciliation. ALLERGIES: Penicillin, Cipro, levofloxacin. SOCIAL HISTORY: Lives at [facility]. Does not drink or smoke. His is his [id number]-attorn christopher. FAMILY HISTORY: Not pertinent. REVIEW OF SYSTEMS: 10-point review of systems negative, except as mentioned in HPI. PHYSICAL EXAM: VITAL SIGNS: Blood pressure 122/75, heart rate 88, respiratory rate 18, O2 91 on brandyn m air, temperature 36.7. GENERAL: This is a well-developed male in no acute distress. HEENT: Norm ocephalic, nontraumatic. Extraocular movements intact. NECK: Supple. No lymphadenopathy. Trachea midline. RESPIRATORY: No accessory respiratory muscle use. CARDIAC: Regular rate and rhythm. No obvious JVD. GI: Abdomen soft, nondistended, nontender to palpation. No hepatosplenomegaly. : No bladder distention. No CVA tenderness. Patient has a 24-Thai catheter in place draining bright red urine with clots in the tubing and catheter bag. INTEGUMENT: No obvious rashes or lesions. MU SCULOSKELETAL: Patient was supine, able to move the left extremity. Right extremity is paralyzed. NEURO: Patient seemed alert, oriented, was able to verbalize appropriate answers to questions. LABORATORY/IMAGING: White blood cell count 11.61, hemoglobin 11.7, hematocrit 36.9, platelets 160. Coags: INR is 2.91. Chemistries: Sodium 133, potassium 3.6, chloride 100, carbon dioxide 24, anion gap 9, creatinine 1.1, BUN 25, glucose 95, calcium 8.4. Urinalysis positive for blood and nitrates. Urine culture is pending. Patient had a CT of the abdomen and pelvis, which I have reviewed personally along with Dr. Bravo, ows stable left known renal mass, 17 mm in size approximately. Also shows prostatomegaly with likely overlying blood clots when compared to CT from this summer. ASSESSMENT: Gross hematuria with clots, BPH. PLAN: I have discussed the case with both Dr. Bravo's and Dr. Mcqueen. Options for this patient, inc ariellae starting his 3-way catheter irrigation, reversing his Coumadin levels, which are currently being held, or taking him to the OR for clot irrigation. Patient elects to undergo clot irrigation and th is will be performed later today. /[id number]/MODL
--- NOTE | 2018-04-29 13:06 | PDMN ---
Medical Necessity Medical necessity: Pt meets IP criteria per MD & MCG M-300; est los >2 mn for eval/tx of possible UTI w/gross hematuria, large blood clots, leukocytosis & acute kidney injury; admit for further monitoring, IV abx, IVFs, Urology consult & possible 3-way pineda w/continuous bladder irrigation vs surgical intervention; hx bladder mass/cystic renal mass, chronic UTIs, DVT on AC w/IVC filter; per H&P & order 04/28/18
[2018-04-29] MEDS ORDERED: LR 1,000 ML IV ONE (13:11)
--- NOTE | 2018-04-29 14:31 | HOSPPROG ---
Hospitalist Progress Note Assessment/Plan: 1. Hematuria - Differential includes UTI vs. known bladder mass - Currently on AC with coumadin, being held currently, no reversal at this time - Urology consulted on admission, plan for clot irrigation to be performed today , will f/u recommendations 2. Bladder Mass - CT A/P on admission showing increased size of polypoid mass - Urology consult as above, followed by Dr. Sanchez as an outpatient 3. STACIE - Likely prerenal - Cr improved from 1.3 on admission, 1.1 this AM s/p IVF - Continue to monitor BMP, I/O, avoid nephrotoxic agents 4. Possible UTI - UA on admission with + Nitrate, 3+ Blood, no WBC or bacteria - Started on Cefepime on admission due to hx of Pseudomonas - Will continue abx for now given urological procedure above - WBC improved 16->11 this AM, continue to monitor CBC - Urine culture pending 5. DVT - 10 years ago, has been on coumadin since - Will hold coumadin in setting of hematuria as above, no urgent need for reversal - Will restart coumadin or at least DVT ppx with improvement of hematuria/ urology input 6. CVA with R sided paralysis - Appears at baseline - PT/OT consulted FEN: IVF PRN, NPO for procedure today Code: FULL DVT PPx: Holding home Coumadin, SCDs Dispo: Pending clinical course Subjective: Patient reports continued hematuria overnight Objective: Vital Signs Temp Pulse Resp BP Pulse Ox 37.9 C 92 16 105/68 92 04/29/18 11:53 04/29/18 11:53 04/29/18 11:53 04/29/18 11:53 04/29/18 11:53 Laboratory Results 04/29/18 04:30 04/29/18 04:30 04/28/18 04/29/18 04/30/18 05:59 05:59 05:59 Intake Total 878 Output Total 600 Balance 278 PT 28.9 SEC (12.0-15.0) H 04/28/18 15:47 INR 2.91 (0.83-1.16) H 04/28/18 15:47 - Physical Exam Constitutional: no apparent distress Eyes: PERRL Ears, Nose, Mouth, Throat: moist mucous membranes Cardiovascular: regular rate and rhythym Respiratory: no respiratory distress Gastrointestinal: soft, non-tender abdomen Genitourinary: pineda in urethra Neurologic: No AAOx3 Psychiatric: interacting appropriately ICD10 Worksheet Patient Problems: Problems Problem Status Onset Bladder mass Acute Chronic anticoagulation Acute Gross hematuria Acute Chest pain Acute Cholecystitis Acute Fever Acute Hyponatremia Acute Sepsis Acute Urinary tract infection Acute
[2018-04-29] MEDS ORDERED: LIDOCAINE 2% JELLY 20 ML (UROJECT) ONE (15:56)
--- NOTE | 2018-04-29 16:25 | PDANEPAE ---
ANE Past Medical History - Cardiovascular History Hx Hypertension: Yes Hx Arrhythmias: No Hx Chest Pain: No Hx Coronary Artery / Peripheral Vascular Disease: No Hx CHF / Valvular Disease: No Hx Palpitations: No - Pulmonary History Hx COPD: No Hx Asthma/Reactive Airway Disease: No Hx Recent Upper Respiratory Infection: No Hx Oxygen in Use at Home: No Hx Sleep Apnea: No Sleep Apnea Screening Result - Last Documented: Negative - Endocrine History Hx Diabetes: No - Neurological & Psychiatric Hx Hx Neurological and Psychiatric Disorders: Yes Neurological / Psychiatric History Comment: CVA in 2004 - Cancer History Hx Cancer: No - GI History Gastrointestinal History Comment: History of PEG. ANE Review of Systems Review of Systems: ANE Patient History - Allergies Allergies/Adverse Reactions: Penicillins Allergy (Intermediate, Verified 05/30/14 18:02) Rash ciprofloxacin Allergy (Unknown, Verified 04/28/18 20:45) levofloxacin Allergy (Unknown, Verified 04/28/18 20:45) Rash - Home Medications Home Medications: Dutasteride [Avodart 0.5 MG (*)] 0.5 mg PO DAILY 10/07/12 [Last Taken 04/28/18] Tamsulosin HCl [Flomax 0.4 MG (*)] 0.4 mg PO DAILY 10/07/12 [Last Taken 04/28/18 ] Herbals/Supplements -Info Only 1 ea PO DAILY 01/26/17 [Last Taken Unknown] Multivitamins [Multivitamin (*)] 1 each PO DAILY 01/26/17 [Last Taken 04/28/18] Sennosides/Docusate Sodium [Senna-S Tablet] 1 each PO BID 01/26/17 [Last Taken 04/28/18] lamoTRIgine [LamICTAL 100 MG (*)] 200 mg PO BID 01/26/17 [Last Taken 04/28/18] Nystatin [Nystop] 1 dyana TP DAILY PRN 11/08/17 [Last Taken Unknown] Cholecalciferol Vit D3 [Vitamin D3 (*)] 2,000 units PO DAILY 04/28/18 [Last Taken 04/28/18] Levothyroxine [Synthroid 125 mcg (*)] 125 mcg PO DAILY06 04/28/18 [Last Taken ] Triamterene/Hydrochlorothiazid [Triamterene-Hctz 37.5-25 mg Tb] 1 each PO DAILY 04/28/18 [Last Taken 04/28/18] Warfarin Sodium [Coumadin 7.5MG (*)] 7.5 mg PO DAILY16 04/28/18 [Last Taken ] - NPO status NPO Since - Liquids (Date): 04/29/18 NPO Since - Liquids (Time): 08:30 NPO Since - Solids (Date): 04/29/18 NPO Since - Solids (Time): 08:30 - Smoking Hx Smoking Status: Former smoker ANE Labs/Vital Signs - Labs Result Diagrams: 04/29/18 04:30 04/29/18 04:30 - Vital Signs Blood Pressure: 105/68 Heart Rate: 92 Respiratory Rate: 16 O2 Sat (%): 92 Height: 177.8 cm Weight: 99.79 kg ANE Physical Exam - Airway Neck exam: FROM Mallampati Score: Class 3 Mouth exam: poor dentition - Pulmonary Pulmonary: no respiratory distress - Cardiovascular Cardiovascular: regular rate and rhythym - ASA Status ASA Status: III ANE Anesthesia Plan Anesthesia Plan: GA w LMA
[2018-04-29] MEDS ORDERED: LIDOCAINE 2% 100 MG/5 ML SYR ONE (16:34)
[2018-04-29] MEDS ORDERED: fentaNYL 100 MCG/2 ML INJ ONE ×2 (16:34→17:28)
[2018-04-29] MEDS ORDERED: PROPOFOL 200 MG/20 ML VIAL ONE (16:34)
--- NOTE | 2018-04-29 16:48 | ASMTCMCOM ---
CM Note CM Note Notes: D/W OT who is recommending SNF at this time. OT also indicated patient's would like a referral sent to [facility]. Spoke to Taisha at [facility], they are not accepting any new referrals at this time. Attempted on two occasions to meet with patient and , not available in room. I have left a vm for to discuss rehab options, await c/b. CM will also follow-up on Thursday. PASRR complete and in chart should SNF be needed. Of note, patient resides at [facility] and has used [facility] in the past. Plan: Hopefully SNF Date Signed: 04/29/2018 04:48 PM Electronically Signed By:Aura Cowart RN
--- NOTE | 2018-04-29 16:53 | POSTOPPROG ---
Post Op Note Date of Operation: 04/29/18 Surgeon: Abhijit Mcqueen (# [id number]) Pre-op Diagnosis: Gross hematuria w/ clot retention Post-op Diagnosis: 1. Gross hematuria w/ clot retention 2. BPH Procedure: Evacuation of clots, prostate fulguration Findings: See op note Inf/Abcess present in the surg proc area at time of surgery?: No EBL: Minimal Complications: None Bowel Protocol: N/A Clean Closure Performed: N/A Specimen(s): None Text Box - Additional Text Additional Text: Continue CBI for now. He will likely need at least partial reversal of his coagulopathy in order to minimize risk of recurrent BPH-related bleeding in the postop period.
--- NOTE | 2018-04-29 18:03 | POSTANESTH ---
Post Anesthetic Evaluation Cardiovascular Status: Similar to Pre-Op Cond Respiratory Status: Similar to Pre-op Cond. Level of Consciousness/Mental Status: Moderately Sleepy Pain Control: Adequate, Prn Tx Ordered Nausea/Vomiting Control: Adequate, Prn Tx Ordered Complications Possibly Related to Anesthesia: None Noted
[2018-04-29] MEDS ORDERED: ALBUTEROL 3 ML DEYVIAL IH PRN (18:04)
[2018-04-29] MEDS ORDERED: fentaNYL 100 MCG/2 ML INJ IVP PRN (18:04)
[2018-04-29] MEDS ORDERED: NALOXONE HCL 0.4 MG/ML INJ IVP PRN (18:04)
[2018-04-29] MEDS ORDERED: ONDANSETRON 4 MG/2 ML VIAL IVP PRN (18:04)
--- NOTE | 2018-04-29 18:30 | GOP ---
[f rep st] OPERATIVE REPORT DATE OF OPERATION: 04/29/2018 SURGEON: Abhijit Mcqueen MD ANESTHESIA: Laryngeal mask. PREOPERATIVE DIAGNOSIS: 1. Gross hematuria with clot urinary retention. 2. BPH with urinary obstruction. POSTOPERATIVE DIAGNOSIS: 1. Gross hematuria with clot urinary retention. 2. BPH with urinary obstruction. PROCEDURE PERFORMED: 1. Cystourethroscopy with evacuation of multiple obstructing bladder clots. 2. Prostatic fulguration. FINDINGS: Significant circumferential BPH with secondary bleeding. SPECIMENS: None. ESTIMATED BLOOD LOSS: Intraoperative blood loss minimal. INDICATIONS: This gentleman was admitted to the hospital yesterday with gross hematuria and clot ret ention. It was recommended that he undergo intraoperative assessment and evacuation of clot. The in dications for the procedures as well as potential risks and complications were discussed with the pat billie and his preoperatively. They appeared to understand, other questions were answered, and th christopher wished to proceed. Written informed surgical consent was thereafter obtained from the patient's w mi who is his power of staff attorney. DESCRIPTION OF PROCEDURE: The patient was brought to the operative room and carefully placed in the supine position. He was administered laryngeal mask anesthesia. He was then carefully placed in the dorsal lithotomy position on the cystoscopic table. The existing indwelling Youssef catheter was rosa juan. The genital area was sterilely prepped with Betadine scrub and paint, and then draped in usual sterile fashion. Cystoscopy was performed with a 25-degree sheath and a 30-degree and 70-degree lens es. Anterior urethra revealed no abnormalities. Posterior urethra revealed significant circumferent ial BPH and secondary obstruction. Initially, visualization was poor due to clot present within the prostatic urethra as well as within the bladder. Upon placing the scope in the bladder, visualizatio n was obscured due to the clot in the bladder. I then used an [employer] evacuator to evacuate all the cl ot from the bladder. Once this was completed, I thoroughly examined the bladder cystoscopically. Th e bladder was moderately trabeculated. Ultimately, I was able to confirm there were no areas of worr isome erythema, tumors, or foreign bodies in the bladder. The bleeding appeared to be coming from the prostatic fossa. There was significant lateral lobe enla rgement. There were numerous friable mucosal vessels along the bladder neck as well as on the latera l lobes of the prostate. There was also some bleeding noted from the vessels from the anterior adeno ma. There was a post-transurethral resection defect, along the floor of the prostate. I decided to attempt to fulgurate the prostate in hopes that this would stop any recurrent bleeding. I used a button electrode through the 28-Burmese resectoscopic sheath with the laser resectoscope. T he resectoscopic sheath was placed with a visual obturator to minimize additional trauma to the ureth ra. The prostatic mucosa was thoroughly fulgurated circumferentially. After doing so, there was no significant bleeding appreciated. The urine return at this point was completely clear. The ureteral orifices were then identified and noted to be unremarkable. The instruments were then removed and a 24-Burmese 3-way Youssef catheter inserted with approximately 30 cc of sterile fluid placed in the ball oon. The catheter irrigated manually, and the return was completely clear. The catheter was connect ed to continuous irrigation as well as bag drainage. The patient was awakened, transferred to his be d, then taken to the recovery room. He tolerated the procedure well overall. COMPLICATIONS: None. DISPOSITION: He was transferred to the recovery room in stable condition and will be maintained on c ontinuous bladder irrigation overnight. He will likely need at least partial reversal of his anticoa gulation in order to minimize risk of recurrent bleeding during this hospitalization and following efrain sebastian. /[id number]/MODL
[2018-04-29] MEDS: NS 1,000 ML IV SCH (22:58)
[2018-04-30] MEDS: LEVOTHYROXINE 125 MCG TAB PO SCH (04:26)
[2018-04-30] MEDS: TAMSULOSIN HCL 0.4 MG CAP PO SCH (08:21)
[2018-04-30] MEDS: CEFEPIME HCL 2 GM in NS 100 ML IV SCH (08:21)
[2018-04-30] MEDS: lamoTRIgine 100 MG TAB PO SCH (08:21)
[2018-04-30] MEDS: DUTASTERIDE 0.5 MG CAP PO SCH (08:21)
[2018-04-30] MEDS: SENNOSIDES/DOCUSATE SODIUM TAB PO SCH (08:21)
--- NOTE | 2018-04-30 09:09 | SOAPPROG ---
SOAP Progress Note Assessment/Plan: Assessment: Post op clot irrigation/fulguration Numbness of right lower extremity Plan: Hold CBI and if urine remains clear will pull catheter and reattach condom catheter, per patient preference. Hx of stroke with right hemiparesis, will ask hospitalist to assess 04/30/18 09:07 Subjective: no feeling of right lower leg? denies bladder pain Objective: Vital Signs Temp Pulse Resp BP Pulse Ox 36.4 C 64 16 111/70 98 04/30/18 07:39 04/30/18 07:39 04/30/18 07:39 04/30/18 07:39 04/30/18 07:39 Laboratory Results 04/29/18 04:30 04/29/18 04:30 04/29/18 04/30/18 05/01/18 05:59 05:59 05:59 Intake Total 878 1646 Output Total 600 2150 1900 Balance 278 -504 -1900 PT 28.9 SEC (12.0-15.0) H 04/28/18 15:47 INR 2.91 (0.83-1.16) H 04/28/18 15:47 Physical Exam - Physical Exam General Appearance: alert, no apparent distress Respiratory: normal breath sounds Abdomen: non-tender, soft, No distended Male Genitalia: normal genitalia (catheter draining clear urine into bag) Extremities: other (no sensation to pressure on right foot, does have sensation to pressure at right knee) Neuro/Psych: alert ICD10 Worksheet Patient Problems: Problems Problem Status Onset Acute renal insufficiency Acute Bladder mass Acute Chronic anticoagulation Acute Gross hematuria Acute Hyponatremia Acute Chest pain Acute Cholecystitis Acute Fever Acute Sepsis Acute Urinary tract infection Acute
[2018-04-30 09:35] LABS: INR 2.53 (0.83-1.16)
[2018-04-30 11:28] VITALS: BP 103/58
--- NOTE | 2018-04-30 11:33 | PDIAF ---
- Diagnosis Diagnosis: Hematuria Code Status: Full Code - Medication Management Penitentiary Antibiotics: Bactrim DS BID Penitentiary Antibiotic Stop Date: 05/02/18 Additional Medication Instructions: We are holding Coumadin until Wednesday 05/03. Please restart at that time and repeat an INR on Friday 05/05. Discharge Medications: electronically signed and located in the Home Medication List. PICC Care - Routine: N/A - Orders Services needed: Home Care, Registered Nurse, Physical Therapy, Occupational Therapy Home Care Face to Face: I certify that this patient was under my care and that I had the required [id number] encounter meeting the encounter requirements on the discharge day. My findings support the fact that the patient is homebound as defined in Home Care Face to Face Continued: CMS Chapter 7 Medicare Benefits Manual 30.1.1 , The condition of the patient is such that there exists a normal inability to leave home and consequently, leaving home would require a considerable and taxing effort. Isolation Type: None Diet Texture: Regular Texture Diet, [place] Thick Liquids, Meds Whole w/Liquids - Labs/Radiology PT/INR Date: 05/05/18 - Follow Up Care Current Providers and Referrals: Gurvinder Bucio MD [Primary Care Provider] - As per Instructions
--- NOTE | 2018-04-30 12:51 | ASMTCMCOM ---
CM Note CM Note Notes: Pt reviewed in rounds. Pt to be discharged today per MD. Discussed with Alma Rosa () that we have [facility] can pick him up using a w/c and O2. Alma Rosa was made aware the cost is $65 and agreed to pay it. Transport set up for 2:30p and LISSETH Herbert made aware. does not feel Pt needs any additional help at [facility]. He has O2 at home. CM available if needs arise until then. PLAN: Return to [facility] via [facility] w/ w/c and O2. Date Signed: 04/30/2018 12:51 PM Electronically Signed By:Bri Navarro
--- NOTE | 2018-04-30 12:52 | ASMTLACE ---
JOE Acuity / Level of Answers: Yes Care: Did the patient have an inpatient admission? Comorbidities - select Answers: Cerebrovascular disease all that apply (CVA, TIA, aneurysms, vasc ular dementia) Dementia Other Notes: DVT; AFib; Hypothyroid # of Emergency department Answers: 1-2 visits in the last 6 months Score: 9 Date Signed: 04/30/2018 12:51 PM Electronically Signed By:Bri Navarro
[2018-04-30] MEDS ORDERED: CEFEPIME HCL 2 GM in NS 100 ML IV SCH (15:00)
--- NOTE | 2018-04-30 15:45 | PDDCSUM ---
Discharge Summary Discharge Summary: Date of Admission: 04/28/2018 Date of Discharge: 04/30/2018 Consults: Urology Procedures: Cystourethroscopy with evacuation of multiple obstructing bladder clots, prostatic fulguration Followup: Urology, PCP Hospital Course Problem List: 1. Hematuria - Urology consulted on admission, s/p Cystourethroscopy with evacuation of multiple obstructing bladder clots, prostatic fulguration on 04/29 - Currently on AC with coumadin, being held, plan to restart on Thursday with pineda removal 2. Bladder Mass - CT A/P on admission showing increased size of polypoid mass - Urology consult as above, followed by Dr. Sanchez as an outpatient 3. STACIE - Likely prerenal - Cr improved from 1.3 on admission, 1.1 s/p IVF 4. Possible UTI - UA on admission with + Nitrate, 3+ Blood, no WBC or bacteria - Started on Cefepime on admission due to hx of Pseudomonas - Transitioned to Bactrim upon discharge to complete total 5 day course - WBC improved 16->11 this AM, continue to monitor CBC 5. DVT - 10 years ago, has been on coumadin since - Holding coumadin in setting of hematuria as above, restarting on Thursday with pineda removal, INR checks as outpatient 6. CVA with R sided paralysis - Appears at baseline - PT/OT Time spent on discharge was >35 minutes with >50% of time spent on patient education and counseling.
[2018-04-30] MEDS ORDERED: SULFAMETHOX/TMP 800/160 MG 1 TAB PO SCH (21:00)
== END 2018-04-30 15:31 | DRG 713 ==
LOC: EDUNIT# → F1N 18:22
PROVIDERS: ADMIT Student in an Organized Health Care Education/Training Program; ATTEND Student in an Organized Health Care Education/Training Program
DX: N40.1 Benign prostatic hyperplasia with lower urinary tract symptoms (principal); N13.8 Other obstructive and reflux uropathy; N17.9 Acute kidney failure, unspecified; N39.0 Urinary tract infection, site not specified; I69.351 Hemiplegia and hemiparesis following cerebral infarction affecting right dominant side; R31.0 Gross hematuria; D41.4 Neoplasm of uncertain behavior of bladder; E03.9 Hypothyroidism, unspecified; I10 Essential (primary) hypertension; Z79.01 Long term (current) use of anticoagulants; Z86.718 Personal history of other venous thrombosis and embolism; Z87.440 Personal history of urinary (tract) infections; Z88.0 Allergy status to penicillin; Z87.891 Personal history of nicotine dependence
CPT/HCPCS: 82435-PO; 82565-PO; 82947-PO; 84132-PO; 84295-PO; 84520-PO; 85014-ER; 92526-GN; 92610-GN; 97163-GP; 97166-GO; 97530-GO; 97535-GO; J0692; J2001; J2704; J3010